=== PATIENT | male | born 1950 | race Caucasian/White ===

== ENCOUNTER 2016-11-02 16:32 | Inpatient (IN) | payer OTHER, MEDICARE ==
[~2016-11-02] VITALS: Ht 180.3 cm; Wt 110.9 kg
[~2016-11-02 16:32] MED LIST: COUM1TAB; DILT180C56; HYDR-2768; SIMV5TAB32
[2016-11-02 17:00] VITALS: BP 179/92; PULSE 80; RESP 20; O2SAT 93
[2016-11-02] MEDS ORDERED: METF1000 PO (17:05)
[2016-11-02] MEDS ORDERED: CARV25TA PO (17:05)
[2016-11-02] MEDS ORDERED: DILT300C3 PO (17:05)
[2016-11-02] MEDS ORDERED: ROSU10 PO (17:05)
[2016-11-02] MEDS ORDERED: LOSA100T PO (17:05)
[2016-11-02] MEDS ORDERED: GLIM2TAB PO (17:05)
[2016-11-02] MEDS ORDERED: COUM10TA PO (17:05)
[2016-11-02] MEDS ORDERED: NITROGLYCERIN 2% OINT 1 GM PACKET TOP ONE (17:15)
[2016-11-02] MEDS ORDERED: SODIUM CHLORIDE 0.9% FLUSH 10 ML FLUSH IVF PRN (17:15)
[2016-11-02] MEDS ORDERED: ASPIRIN 81 MG CHEW TAB PO ONE (17:15)
--- NOTE | 2016-11-02 17:16 | PD ---
HPI Chief Complaint: Chest Pain Time Seen by Provider: 16:57 Travel History International Travel<30 days: No Contact w/Intl Traveler<30days: No Traveled to known affect area: No History of Present Illness HPI The patient is a 66-year-old male who presents emergency department for chest pain or shortness of breath. The patient states he developed shortness of breath and chest pain last night. The chest pain is substernal, occasionally sharp and then dull, intermittent, and moderate in intensity. The patient also complains of shortness of breath is worse with lying supine, but denies any exertional symptoms. The patient does have a history of mechanical aortic valve repair in 2000 and is currently taking warfarin. The patient denies any nausea, vomiting, abdominal pain, or diaphoresis. The patient does have a history hypertension, hyperlipidemia, tobacco use, and diabetes. The patient's father had a CABG performed in his 70s. The patient's primary physician is Dr. Kohli and his mechanical systems design engineer is Dr. Kenney. The patient did have a cardiac catheterization prior to the aortic valve replacement which was negative per his report, no stent placement. However, he has not had a stress test or heart catheterization since the surgery. PFSH Past Medical History Hx Anticoagulant Therapy: Yes (COUMADIN) Blood Disorders: No Cardiovascular Problems: Yes (VALVE REPLACEMENT 2000, DIMITRI) High Cholesterol: Yes Diabetes: Yes (II) Patient Takes Glucophage: Yes Diminished Hearing: No Endocrine: No Genitourinary: No Hypertension: Yes Immune Disorder: No Musculoskeletal: No Neurologic: No Reproductive: No Tetanus Vaccination: > 5 Years Influenza Vaccination: Yes Past Surgical History Cardiac Surgery: Yes (AVR 2000) Social History Alcohol Use: No Tobacco Use: Yes (08/06 PPD) Allergies-Medications (Allergen,Severity, Reaction): Coded Allergies: No Known Allergies (Verified , 11/02/16) Reported Meds & Prescriptions Reported Meds & Active Scripts Active Reported Coumadin (Warfarin) 10 Mg Tab 10 Mg PO DAILY Losartan (Losartan Potassium) 100 Mg Tab 100 Mg PO DAILY Glimepiride 2 Mg Tab 2 Mg PO BIDAC Crestor (Rosuvastatin Calcium) 10 Mg Tab 10 Mg PO DAILY Carvedilol 25 Mg Tab 25 Mg PO BID Diltiazem CD 24 HR 300 Mg Caper 300 Mg PO DAILY Metformin (Metformin HCl) 1,000 Mg Tab 1,000 Mg PO BIDPC With meals Review of Systems Except as stated in HPI: all other systems reviewed are Neg General / Constitutional: No: Fever HENT: No: Lightheadedness Cardiovascular: Positive: Chest Pain or Discomfort, No: Dyspnea on exertion Respiratory: Positive: Shortness of Breath Gastrointestinal: No: Nausea, Vomiting, Abdominal Pain Musculoskeletal: No: Weakness, Edema Neurologic: No: Dizziness Physical Exam Narrative GENERAL: Awake, alert, pleasant 66-year-old male who appears his stated age and is in no acute respiratory distress. SKIN: Focused skin assessment warm/dry. Tattoos noted. HEAD: Atraumatic. Normocephalic. EYES: Pupils equal and round. No scleral icterus. No injection or drainage. ENT: No nasal bleeding or discharge. Mucous membranes pink and moist. NECK: Trachea midline. No JVD. CARDIOVASCULAR: Regular rate and rhythm. Mechanical click noted. Well-healed midline incisional scar. RESPIRATORY: No accessory muscle use. Essentially clear bilateral. GASTROINTESTINAL: Abdomen soft, non-tender, nondistended. No epigastric tenderness. No rebound tenderness. MUSCULOSKELETAL: No obvious deformities. No clubbing. No cyanosis. No edema. NEUROLOGICAL: Awake and alert. No obvious cranial nerve deficits. Motor grossly within normal limits. Normal speech. PSYCHIATRIC: Appropriate mood and affect; insight and judgment normal. Data Data Last Documented VS Vital Signs Date Time Temp Pulse Resp B/P Pulse Ox O2 Delivery O2 Flow Rate FiO2 11/02/16 17:00 80 20 179/92 93 Room Air Orders Electrocardiogram (11/02/16 ) B-Type Natriuretic Peptide (11/02/16 17:11) Ckmb (Isoenzyme) Profile (11/02/16 17:11) Complete Blood Count With Diff (11/02/16 17:11) Comprehensive Metabolic Panel (11/02/16 17:11) Magnesium (Mg) (11/02/16 17:11) Prothrombin Time / Inr (Pt) (11/02/16 17:11) Act Partial Throm Time (Ptt) (11/02/16 17:11) Troponin I (11/02/16 17:11) Chest, Single Ap (11/02/16 17:11) Ecg Monitoring (11/02/16 17:11) Bilateral Bp Monitoring (11/02/16 17:11) Iv Access Insert/Monitor (11/02/16 17:11) Oximetry (11/02/16 17:11) Oxygen Administration (11/02/16 17:11) Aspirin Chew (Aspirin Chew) (11/02/16 17:15) Nitroglycerin 2% Oint (Nitroglycerin 2% (11/02/16 17:15) Sodium Chloride 0.9% Flush (Ns Flush) (11/02/16 17:15) CKMB (11/02/16 17:15) CKMB% (11/02/16 17:15) Labs Laboratory Tests Test 11/02/16 17:15 White Blood Count 8.1 TH/MM3 Red Blood Count 4.62 MIL/MM3 Hemoglobin 12.8 GM/DL Hematocrit 38.8 % Mean Corpuscular Volume 83.9 FL Mean Corpuscular Hemoglobin 27.6 PG Mean Corpuscular Hemoglobin 32.9 % Concent Red Cell Distribution Width 15.7 % Platelet Count 209 TH/MM3 Mean Platelet Volume 8.7 FL Neutrophils (%) (Auto) 63.8 % Lymphocytes (%) (Auto) 21.6 % Monocytes (%) (Auto) 9.7 % Eosinophils (%) (Auto) 3.7 % Basophils (%) (Auto) 1.2 % Neutrophils # (Auto) 5.2 TH/MM3 Lymphocytes # (Auto) 1.8 TH/MM3 Monocytes # (Auto) 0.8 TH/MM3 Eosinophils # (Auto) 0.3 TH/MM3 Basophils # (Auto) 0.1 TH/MM3 CBC Comment DIFF FINAL Differential Comment Prothrombin Time 30.1 SEC Prothromb Time International 2.6 RATIO Ratio Activated Partial 33.6 SEC Thromboplast Time Sodium Level 140 MEQ/L Potassium Level 4.5 MEQ/L Chloride Level 105 MEQ/L Carbon Dioxide Level 28.5 MEQ/L Anion Gap 7 MEQ/L Blood Urea Nitrogen 10 MG/DL Creatinine 0.89 MG/DL Estimat Glomerular Filtration 85 ML/MIN Rate Random Glucose 111 MG/DL Calcium Level 9.7 MG/DL Magnesium Level 1.6 MG/DL Total Bilirubin 0.5 MG/DL Aspartate Amino Transf 22 U/L (AST/SGOT) Alanine Aminotransferase 29 U/L (ALT/SGPT) Alkaline Phosphatase 60 U/L Total Creatine Kinase 125 U/L Creatine Kinase MB 1.6 NG/ML Troponin I 0.02 NG/ML Total Protein 7.2 GM/DL Albumin 4.0 GM/DL MDM Medical Decision Making Medical Screen Exam Complete: Yes Emergency Medical Condition: Yes Medical Record Reviewed: Yes Interpretation(s) EKG reveals normal sinus rhythm. Left bundle branch block. Laboratory Tests Test 11/02/16 17:15 White Blood Count 8.1 TH/MM3 Red Blood Count 4.62 MIL/MM3 Hemoglobin 12.8 GM/DL Hematocrit 38.8 % Mean Corpuscular Volume 83.9 FL Mean Corpuscular Hemoglobin 27.6 PG Mean Corpuscular Hemoglobin 32.9 % Concent Red Cell Distribution Width 15.7 % Platelet Count 209 TH/MM3 Mean Platelet Volume 8.7 FL Neutrophils (%) (Auto) 63.8 % Lymphocytes (%) (Auto) 21.6 % Monocytes (%) (Auto) 9.7 % Eosinophils (%) (Auto) 3.7 % Basophils (%) (Auto) 1.2 % Neutrophils # (Auto) 5.2 TH/MM3 Lymphocytes # (Auto) 1.8 TH/MM3 Monocytes # (Auto) 0.8 TH/MM3 Eosinophils # (Auto) 0.3 TH/MM3 Basophils # (Auto) 0.1 TH/MM3 CBC Comment DIFF FINAL Differential Comment Prothrombin Time 30.1 SEC Prothromb Time International 2.6 RATIO Ratio Activated Partial 33.6 SEC Thromboplast Time Sodium Level 140 MEQ/L Potassium Level 4.5 MEQ/L Chloride Level 105 MEQ/L Carbon Dioxide Level 28.5 MEQ/L Anion Gap 7 MEQ/L Blood Urea Nitrogen 10 MG/DL Creatinine 0.89 MG/DL Estimat Glomerular Filtration 85 ML/MIN Rate Random Glucose 111 MG/DL Calcium Level 9.7 MG/DL Magnesium Level 1.6 MG/DL Total Bilirubin 0.5 MG/DL Aspartate Amino Transf 22 U/L (AST/SGOT) Alanine Aminotransferase 29 U/L (ALT/SGPT) Alkaline Phosphatase 60 U/L Total Creatine Kinase 125 U/L Creatine Kinase MB 1.6 NG/ML Troponin I 0.02 NG/ML Total Protein 7.2 GM/DL Albumin 4.0 GM/DL Last Impressions Chest X-Ray 11/02/16 8214 Signed Impressions: Service Date/Time: Wednesday, November 02, 2016 17:16 - CONCLUSION: Compensated cardiomegaly, previous aortic valve otherwise negative. Armani Fiore MD FACR Differential Diagnosis Differential diagnosis includes acute coronary syndrome, congestive heart failure, mechanical valve failure, pulmonary embolism, GERD, pancreatitis, esophageal spasm, pleural effusion, pneumonia. Narrative Course IV was established, labs are drawn and sent, and the patient was placed on cardiac telemetry monitoring and continuous pulse oximetry monitoring. The patient was administered aspirin and Nitropaste. EKG was ordered and interpreted. EKG reveals a left bundle branch block, no old EKGs on record. The patient's chest x-ray reveals compensated cardiomegaly and postoperative changes, no evidence of pleural affusion or significant pulmonary edema. The patient's initial troponin is negative. The patient does have chest pain with mild shortness of breath, may be secondary to acute coronary syndrome versus cardiomyopathy. Therefore, patient will be 23 hour observation to the chest pain center for serial cardiac enzymes and further evaluation by cardiology. Physician Communication Physician Communication The patient will be 23 hour observation to [facility] pain center for serial cardiac enzymes and further evaluation by cardiology. Diagnosis Primary Impression: Chest pain Qualified Code: R07.9 - Chest pain, unspecified type Additional Impression: Dyspnea Qualified Code: R06.02 - Shortness of breath Admitting Information Admitting Physician Requests: Observation Condition: Stable Norman Spencer MD Nov 02, 2016 17:16
[2016-11-02 17:40] LABS: AUTOMATED NEUTROPHIL # 5.2 TH/MM3 (1.8-7.7); BASOPHIL # 0.1 TH/MM3 (0-0.2); BASOPHIL % 1.2 % (0.0-2.0); EOSINOPHIL # 0.3 TH/MM3 (0-0.4); EOSINOPHIL % 3.7 % (0.0-4.0); HEMATOCRIT 38.8 % (39.0-51.0); HEMO FLAGS DIFF FINAL; LYMPH % 21.6 % (9.0-44.0); LYMPHOCYTE # 1.8 TH/MM3 (1.0-4.8); MEAN CELL VOLUME 83.9 FL (80.0-100.0); MEAN CORPUSCULAR HEMOGLOBIN 27.6 PG (27.0-34.0); MEAN CORPUSCULAR HGB CONC 32.9 % (32.0-36.0); MONO % 9.7 % (0.0-8.0); NEUT % 63.8 % (16.0-70.0); PLATELET COUNT 209 TH/MM3 (150-450); RED BLOOD COUNT 4.62 MIL/MM3 (4.50-5.90); RED CELL DISTRIBUTION WIDTH 15.7 % (11.6-17.2); WHITE BLOOD COUNT 8.1 TH/MM3 (4.0-11.0)
--- NOTE | 2016-11-02 17:47 | RADRPT ---
EXAM DATE/TIME: 11/02/2016 17:16 [facility] COMPARISON: No previous studies available for comparison. INDICATIONS : Chest pain and short of breath. MEDICAL HISTORY : None. SURGICAL HISTORY : Heart valve. ENCOUNTER: Initial ACUITY: 1 day PAIN SCORE: 7/10 LOCATION: Bilateral chest FINDINGS: The lungs are clear. The heart is minimally enlarged. Sternal l wires and aortic valve are noted. T he pulmonary vascularity is normal. There is no evidence for infiltrate or failure. The portion of the bony skeleton visualized is unremarkable. CONCLUSION: Compensated cardiomegaly, previous aortic valve otherwise negative. Armani Fiore MD FACR Board Certified Radiologist. This report was verified electronically.
[2016-11-02 17:48] LABS: APTT (PATIENT) 33.6 SEC (24.3-30.1); INTERNATIONAL NORMALIZED RATIO 2.6 RATIO; PROTHROMBIN TIME - PATIENT 30.1 SEC (9.8-11.6)
[2016-11-02 18:03] LABS: ALKALINE PHOSPHATASE 60 U/L (45-117); ALT (GPT) 29 U/L (12-78); ANION GAP 7 MEQ/L (5-15); AST (GOT) 22 U/L (15-37); BICARBONATE 28.5 MEQ/L (21.0-32.0); BLOOD UREA NITROGEN 10 MG/DL (7-18); CHLORIDE 105 MEQ/L (98-107); CREATINE KINASE 125 U/L (39-308); GLOMERULAR FILTRATION RATE 85 ML/MIN (>89); MAGNESIUM 1.6 MG/DL (1.5-2.5); SODIUM (NA) 140 MEQ/L (136-145); TOTAL BILIRUBIN ADULT 0.5 MG/DL (0.2-1.0)
[2016-11-02 18:20] LABS: POTASSIUM 4.5 MEQ/L (3.5-5.1)
[2016-11-02 18:32] LABS: CKMB 1.6 NG/ML (0.5-3.6)
[2016-11-02] MEDS ORDERED: WARFARIN SOD 10 MG TAB PO ONE (19:00)
[2016-11-02] MEDS ORDERED: ACETAMINOPHEN 500 MG CPLT PO PRN (19:00)
[2016-11-02] MEDS ORDERED: ACETAMINOPHEN/HYDROcodone 325 MG/7.5 MG TAB PO PRN (19:00)
[2016-11-02] MEDS ORDERED: SODIUM CHLORIDE 0.9% FLUSH 10 ML FLUSH IV FLUSH PRN (19:00)
[2016-11-02] MEDS ORDERED: ONDANSETRON HCL 4 MG/2 ML VIAL IV PRN (19:00)
[2016-11-02] MEDS ORDERED: MORPHINE SULFATE 4 MG/ML INJ IV PRN (19:00)
[2016-11-02] MEDS ORDERED: NITROGLYCERIN 0.4 MG SL 25 TABS/BTL SL PRN (19:00)
[2016-11-02 19:01] VITALS: BP 172/94
[2016-11-02 20:49] VITALS: BP 152/72; PULSE 86; RESP 16; O2SAT 96
[2016-11-02] MEDS: SODIUM CHLORIDE 0.9% FLUSH 10 ML FLUSH IV FLUSH SCH (20:49)
[2016-11-02 23:08] VITALS: BP 168/90; PULSE 79; RESP 20; TEMP 98.5; O2SAT 95
[2016-11-02 23:44] LABS: CREATINE KINASE 111 U/L (39-308)
[2016-11-02 23:58] LABS: CKMB 1.6 NG/ML (0.5-3.6)
[2016-11-03] VITALS (10 sets, daily range): BP systolic 115–160; BP diastolic 58–94; PULSE 64–91; RESP 20; TEMP 97.6–98.9; O2SAT 93–99
[2016-11-03] MEDS: ASPIRIN 325 MG TAB PO SCH (07:54)
[2016-11-03] MEDS: SODIUM CHLORIDE 0.9% FLUSH 10 ML FLUSH IV FLUSH SCH ×2 (09:00→21:00)
[2016-11-03] MEDS ORDERED: DEXTROSE 50% IN WATER 50 ML VIAL(D50) IV PRN (09:30)
[2016-11-03] MEDS ORDERED: DILTIAZEM-CD 300 MG CAP ER PO SCH (09:30)
[2016-11-03] MEDS ORDERED: GLUCAGON 1 MG/ML VIAL IM/SQ PRN (09:30)
[2016-11-03] MEDS: LOSARTAN 50 MG TAB PO SCH (09:42)
[2016-11-03] MEDS: ATORVASTATIN 20 MG TAB PO SCH (09:42)
[2016-11-03] MEDS: CARVEDILOL 12.5 MG TAB PO SCH ×2 (09:42→21:00)
--- NOTE | 2016-11-03 09:52 | HHI.HP ---
[facility] Primary Care Physician Maegan Morales MD Chief Complaint Chest pain and shortness of breath History of Present Illness This is a 66-year-old male with history of aortic valve replacement in 2000 that presents complaining of chest pain and shortness of breath. States he really wasn't concerned with the chest discomfort. He states that the little thumb print jabbing at different spots of his chest. He is concerned about the shortness of breath. He states it never been short of breath. He is beginning to wonder has anything to do with taking Chantix. He began taking Chantix 5 days ago and the shortness of breath began 3 days ago. States not exertional related as he does nothing exertional. But he looked up the medication and said that it can cause shortness of breath and difficulty sleeping which she's had both. He has had no cigarettes for last 4 days. He states at times the shortness of breath is worse lot when lying flat. Patient states he has been compliant with medications including his warfarin. Denies recent illness. Denies fevers or chills. He has not been coughing. Review of Systems General: Patient denies fevers, chills recent, and recent travel HEENT: Patient denies headache, sore throat, difficulty swallowing. Cardiovascular: Has the chest discomfort as mentioned above. Denies sensation of heart beating rapidly or irregularly. No syncope. Denies diaphoresis. Respiratory: Patient has been short of breath. Denies chest discomfort. Denies coughing wheezing or hemoptysis. GI: Patient denies nausea, vomiting, diarrhea, abdominal pain, bloody stools. Musculoskeletal: Patient denies joint pain or edema. Denies calf pain or edema. Neurovascular: Patient denies numbness, tingling, weakness in extremities. Denies headache. Endocrine: Denies polyuria and polydipsia. Hematologic: Denies easy bruising. Skin: Denies rash or itching. Past Family Social History Allergies: Coded Allergies: No Known Allergies (Verified , 11/02/16) Past Medical History History of aortic valve replacement and on Coumadin therapy. Hypertension, hyperlipidemia, and diabetes. 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 He states he has a checked annually and it has not changed since 2000. Past Surgical History Aortic valve replacement 2000. Cardiac catheterization 2000 without intervention. Reported Medications Reported Meds & Active Scripts Active Reported Coumadin (Warfarin) 10 Mg Tab 10 Mg PO DAILY Losartan (Losartan Potassium) 100 Mg Tab 100 Mg PO DAILY Glimepiride 2 Mg Tab 2 Mg PO BIDAC Crestor (Rosuvastatin Calcium) 10 Mg Tab 10 Mg PO DAILY Carvedilol 25 Mg Tab 25 Mg PO BID Diltiazem CD 24 HR 300 Mg Caper 300 Mg PO DAILY Metformin (Metformin HCl) 1,000 Mg Tab 1,000 Mg PO BIDPC With meals Active Ordered Medications Current Medications Medications (Trade) Dose Ordered Sig/Herlinda Route Start Time Stop Time Status Last Admin (NS Flush) 2 ml UNSCH PRN IV FLUSH 11/02/16 19:00 (NS Flush) 2 ml BID IV FLUSH 11/02/16 21:00 11/02/16 20:49 (Tylenol) 500 mg Q4H PRN PO 11/02/16 19:00 ([place] 7.5-325 Mg) 1 tab Q4H PRN PO 11/02/16 19:00 (Morphine Inj) 2 mg Q4H PRN IV 11/02/16 19:00 (Zofran Inj) 4 mg Q6H PRN IV 11/02/16 19:00 (Nitrostat Sl) 0.4 mg Q5M PRN SL 11/02/16 19:00 (Aspirin) 325 mg DAILY PO 11/03/16 09:00 11/03/16 07:54 (Coreg) 25 mg BID PO 11/03/16 09:30 (Cardizem Cd) 300 mg DAILY PO 11/03/16 09:30 (Cozaar) 100 mg DAILY PO 11/03/16 09:30 (Lipitor) 20 mg DAILY PO 11/03/16 09:30 (D50w (Vial) Inj) 25 ml UNSCH PRN IV 11/03/16 09:30 (Glucagon Inj) 1 mg UNSCH PRN IM/SQ 11/03/16 09:30 Family History Follow had a bypass in his 70s. Social History Patient quit smoking 4 days ago but prior that he was smoking anywhere from 1-2 and a pack cigarettes daily for 25 years. No alcohol for 40 years. Denies illicit drugs. He is . Physical Exam Vital Signs Vital Signs Date Time Temp Pulse Resp B/P Pulse Ox O2 Delivery O2 Flow Rate FiO2 11/03/16 08:14 93 21 11/03/16 07:27 98.9 90 20 156/89 93 11/03/16 07:25 88 11/03/16 03:59 97.6 87 20 160/94 99 11/03/16 03:50 91 11/03/16 00:14 80 11/02/16 23:08 98.5 79 20 168/90 95 11/02/16 20:49 86 16 152/72 96 Nasal Cannula 2 11/02/16 19:01 172/94 11/02/16 17:00 80 20 179/92 93 Room Air 11/02/16 17:00 81 20 96 Physical Exam GENERAL: This is a well-nourished, well-developed patient, in no apparent distress. Patient speaks in clear complete sentences. Patient is pleasant. HEENT: Head is atraumatic and normocephalic. Neck is supple without lymphadenopathy and trachea is midline. No JVD or carotid bruits. CARDIOVASCULAR: Grade 3 systolic murmur right sternal border. Regular rate and rhythm without gallops, or rubs. RESPIRATORY: Clear to auscultation. Breath sounds equal bilaterally. No wheezes , rales, or rhonchi. Chest wall is nontender. No use of accessory muscles. GASTROINTESTINAL: Abdomen is nontender, nondistended. Abdomen soft. No obvious pulsatile mass or bruit. No CVA tenderness. Strong femoral pulses bilaterally. Normal bowel sounds in all quadrants. MUSCULOSKELETAL: Patient is moving upper and lower extremities freely. 1+ edema bilateral lower extremities. No calf tenderness and no Homans sign. Strong pulses in upper and lower extremities. NEUROLOGICAL: Patient is alert and oriented. Cranial nerves 2-12 are grossly intact. No focal deficits and speech is clear. SKIN: No rash and turgor is normal. Laboratory Laboratory Tests Test 11/02/16 11/02/16 11/02/16 17:15 20:30 23:09 White Blood Count 8.1 Red Blood Count 4.62 Hemoglobin 12.8 Hematocrit 38.8 Mean Corpuscular Volume 83.9 Mean Corpuscular Hemoglobin 27.6 Mean Corpuscular Hemoglobin 32.9 Concent Red Cell Distribution Width 15.7 Platelet Count 209 Mean Platelet Volume 8.7 Neutrophils (%) (Auto) 63.8 Lymphocytes (%) (Auto) 21.6 Monocytes (%) (Auto) 9.7 Eosinophils (%) (Auto) 3.7 Basophils (%) (Auto) 1.2 Neutrophils # (Auto) 5.2 Lymphocytes # (Auto) 1.8 Monocytes # (Auto) 0.8 Eosinophils # (Auto) 0.3 Basophils # (Auto) 0.1 CBC Comment DIFF FINAL Differential Comment Prothrombin Time 30.1 Prothromb Time International 2.6 Ratio Activated Partial 33.6 Thromboplast Time Sodium Level 140 Potassium Level 4.5 Chloride Level 105 Carbon Dioxide Level 28.5 Anion Gap 7 Blood Urea Nitrogen 10 Creatinine 0.89 Estimat Glomerular Filtration 85 Rate Random Glucose 111 Calcium Level 9.7 Magnesium Level 1.6 Total Bilirubin 0.5 Aspartate Amino Transf 22 (AST/SGOT) Alanine Aminotransferase 29 (ALT/SGPT) Alkaline Phosphatase 60 Total Creatine Kinase 125 84 111 Creatine Kinase MB 1.6 1.6 Troponin I 0.02 0.03 0.02 B-Type Natriuretic Peptide 310 Total Protein 7.2 Albumin 4.0 Result Diagram: 11/02/16 17111/02/161714 Assessment and Plan Assessment and Plan * Chest pain: Patient had serial cardiac enzymes and EKGs for ruling out purposes. EKG has left bundle branch block. He will be seen by Dr. Moscoso in the chest pain center and will undergo a Lexiscan. He will likely be discharged home with instructions to follow-up with his primary care physician and alum operator if the stress test were to be nonischemic. * Hypertension: Resume current medication. * History of aortic valve replacement: Continue warfarin and continue follow with physician to regulate the warfarin dose. * Hyperlipidemia: Continue current medication. * Diabetes: We'll hold his oral medications and cover with sliding coverage while he is nothing by mouth. Will resume his medications afterwards. He should follow diabetic diet. * Tobacco abuse: Patient has been counseled on importance of continued smoking cessation. Will discuss Chantix with Dr. Moscoso. Mina Minaya Nov 03, 2016 09:52
[2016-11-03] MEDS ORDERED: REGADENOSON INJ 0.4 MG/5 ML SYR ONE (10:22)
[2016-11-03] MEDS: INSULIN ASPART SUPPLEMENTAL SCALE SQ SCH ×3 (10:41→21:00)
[2016-11-03] MEDS ORDERED: COUM10TA PO (11:58)
[2016-11-03] MEDS ORDERED: COUM2.5T PO (11:58)
--- NOTE | 2016-11-03 12:12 | RADRPT ---
EXAM DATE/TIME: 11/03/2016 10:15 [facility] COMPARISON: No previous studies available for comparison. INDICATIONS : Substernal chest pain with dyspnea. Angina. DOSE: 35 mCi Tc99m Myoview at stress. 11 mCi Tc99m Myoview at rest. 0.4 mg Lexiscan STRESS SYMPTOMS: Dyspnea. EJECTION FRACTION: 37% MEDICAL HISTORY : Hypercholesterolemia. Hypertension. Diabetes mellitus type 2. Smoker. SURGICAL HISTORY : Aortic valve repair. ENCOUNTER: Initial ACUITY: 2 days PAIN SCALE: 7/10 LOCATION: Substernal chest TECHNIQUE: The patient underwent pharmacologic stress with infusion of prescribed dose. Continuous ECG tracing was monitored during stress. Gated SPECT imaging was performed after stress and conventional SPECT i maging was performed at rest. The examination was performed on a SPECT/CT scanner, both attenuation and non-corrected datasets were reviewed. FINDINGS: The best perfused myocardium in the septum. There is redistribution in the anterior lateral wall beg inning in the ventricle extending to the apex. There is minimal redistribution in the inferior septa l region as well. Ejection fraction 37% with septal and inferior wall hypokinesis. The lateral wall that shows redistr ibution and does have reasonable wall motion. CONCLUSION: Stress-induced ischemia as described above RISK CATEGORY: Intermediate (1-3% Annual Mortality Rate) Armani Fiore MD FACR on November 03, 2016 at 12:09 Board Certified Radiologist. This report was verified electronically.
[2016-11-03 13:52] LABS: INTERNATIONAL NORMALIZED RATIO 2.3 RATIO; PROTHROMBIN TIME - PATIENT 25.9 SEC (9.8-11.6)
[2016-11-03] MEDS: FUROSEMIDE 40 MG TAB PO SCH (15:41)
--- NOTE | 2016-11-03 15:58 | MB ---
cc: ANGELICA GÓMEZ HANSCY M.D. DATE OF CONSULTATION: 11/03/2016 REASON FOR CONSULTATION: Chest pain, angina. Positive nuclear stress study. HISTORY OF PRESENT ILLNESS: Mr. Arenas is a 66-year-old gentleman with history of aortic valve replacement, that was in 2000, diabetes mellitus, high blood pressure, hyperlipidemia, chronic smoker just stopped smoking around 5 days ago. He used Chantix. He began with chest discomfort and shortness of breath. He decided to come to the emergency room. He was admitted. Nuclear stress study was performed. That indicated anterior ischemia, ejection fraction of around 37%. I was consulted for further evaluation and management. The chart was reviewed. The patient was evaluated. ALLERGIES: NONE. SOCIAL HISTORY The gentleman smokes a pack of cigarettes a day for the past 40 to 45 years. He tried to stop smoking five days ago. FAMILY HISTORY Noncontributory to his current medical condition. MEDICATIONS 1. Coumadin. 2. Losartan 3. Glimeperide. 4. Crestor. 5. Coreg. 6. Cardizem. 7. Metformin. REVIEW OF SYSTEMS He refer currently some shortness of breath but no chest pain, no chest discomfort, no fever. PHYSICAL EXAMINATION: Alert, fully oriented. VITAL SIGNS: Blood pressure is 156/89, pulse 88, respiratory rate 20. Lungs: Ventilated. Cardiovascular: S1-S2 regular. No gallop. No murmur heard. Abdomen: Soft, obese. No masses or bruits. Extremities: No edema. Electrocardiogram: sinus rhythm, first-degree AV block, left bundle-branch block, diffuse ST changes. LABORATORY DATA Hemoglobin is 12.8, white blood cell 8.1, potassium 4.5, creatinine 0.89, troponin 0.02. BNP 310. ASSESSMENT AND RECOMMENDATIONS Mr. Arenas has multiple risk factors. He has diabetes mellitus. He has severe morbid obesity, high blood pressure, hyperlipidemia. He has no chest pain, no chest discomfort. Ejection fraction is low. He had a positive nuclear stress study. He is still smoking a pack of cigarettes a day, 16 years ago he had a cardiac catheterization but now he has strong risk factor for coronary artery disease. The gentleman is going to need a left heart catheterization. The case extensively discussed with him and his . Medications will be modified. Dr. Gómez will be consulted for the procedure. MD BETHANY Patel /2:50 PM /3:49 PM
[2016-11-03] MEDS: amLODIPine BESYLATE 5 MG TAB PO SCH (21:14)
[2016-11-03] MEDS: TEMAZEPAM 15 MG CAP PO PRN (22:39)
[2016-11-04] VITALS (13 sets, daily range): BP systolic 123–142; BP diastolic 60–84; PULSE 62–98; RESP 20; TEMP 97.5–98.9; O2SAT 91–97
[2016-11-04] MEDS: INSULIN ASPART SUPPLEMENTAL SCALE SQ SCH ×4 (06:43→20:56)
[2016-11-04 07:23] LABS: PROTHROMBIN TIME - PATIENT 22.7 SEC (9.8-11.6)
[2016-11-04 07:38] LABS: BICARBONATE 28.4 MEQ/L (21.0-32.0); POTASSIUM 3.7 MEQ/L (3.5-5.1)
[2016-11-04] MEDS: FUROSEMIDE 40 MG TAB PO SCH (07:54)
[2016-11-04] MEDS: CARVEDILOL 12.5 MG TAB PO SCH ×2 (07:55→20:55)
[2016-11-04] MEDS: LOSARTAN 50 MG TAB PO SCH (07:55)
[2016-11-04] MEDS: ASPIRIN 325 MG TAB PO SCH (07:55)
[2016-11-04] MEDS: ATORVASTATIN 20 MG TAB PO SCH (07:55)
[2016-11-04] MEDS: amLODIPine BESYLATE 5 MG TAB PO SCH ×2 (07:55→20:56)
[2016-11-04] MEDS: SODIUM CHLORIDE 0.9% FLUSH 10 ML FLUSH IV FLUSH SCH ×2 (07:56→20:55)
--- NOTE | 2016-11-04 08:12 | HHI.PR ---
Subjective Remarks This is a Pleasant 66 y/o Male with Aortic Valve replacement in 2000, who came to ER with Atypical Chest pain and Shortness of breath he has been on Coumadin therapy, has Hypertension, Hyperlipidemia, and Diabetes Mellitus, PCI 2000, seen by Doctor Rodney Moscoso mental health program specialist and asked for Stress test, read as positive so he was transferred from Clinical Decision Unit, Hospitalized for Interventional mental health program specialist Evaluation, Hospitalist called as Attending for today, he was seen by Doctor Jose Alfredo Haro recommended for Cardiac Cath. 11/04: Seen in his bedroom and discussed with nurse given replacement for potassium in 3.7 and also given magnesium replacement, No Nausea, vomit or diarrhea, No chest pain at this time. Objective Vital Signs Date Time Temp Pulse Resp B/P Pulse Ox O2 Delivery O2 Flow Rate FiO2 11/04/16 07:12 97.9 68 20 142/69 93 11/04/16 03:48 98.0 73 20 137/79 96 11/04/16 00:01 97.6 62 20 126/60 95 11/03/16 21:00 64 11/03/16 20:55 97 Nasal Cannula 3.00 11/03/16 19:22 98.0 67 20 115/58 98 11/03/16 15:32 97.8 68 20 128/75 95 11/03/16 08:14 93 21 I/O 11/03/16 11/03/16 11/03/16 11/04/16 11/04/16 11/04/16 06:59 14:59 22:59 06:59 14:59 22:59 Intake Total 240 ml Balance 240 ml Intake Oral 240 ml # Voids 2 1 3 Result Diagram: 11/02/16 1715 11/04/16 0455 Imaging Last Impressions Myocardial Perfusion Scan Nuc Med 11/03/16 0000 Signed Impressions: Service Date/Time: Thursday, November 03, 2016 10:15 - CONCLUSION: Stress- induced ischemia as described above RISK CATEGORY: Intermediate (1-3%% Annual Mortality Rate) Armani Fiore MD FACR Chest X-Ray 11/02/16 1711 Signed Impressions: Service Date/Time: Wednesday, November 02, 2016 17:16 - CONCLUSION: Compensated cardiomegaly, previous aortic valve otherwise negative. Armani Fiore MD FACR Procedures Stress Test Other Results Laboratory Tests Test 11/02/16 11/02/16 11/04/16 17:15 23:09 04:55 White Blood Count 8.1 TH/MM3 Red Blood Count 4.62 MIL/MM3 Hemoglobin 12.8 GM/DL Hematocrit 38.8 % Mean Corpuscular Volume 83.9 FL Mean Corpuscular Hemoglobin 27.6 PG Mean Corpuscular Hemoglobin 32.9 % Concent Red Cell Distribution Width 15.7 % Platelet Count 209 TH/MM3 Mean Platelet Volume 8.7 FL Neutrophils (%) (Auto) 63.8 % Lymphocytes (%) (Auto) 21.6 % Monocytes (%) (Auto) 9.7 % Eosinophils (%) (Auto) 3.7 % Basophils (%) (Auto) 1.2 % Neutrophils # (Auto) 5.2 TH/MM3 Lymphocytes # (Auto) 1.8 TH/MM3 Monocytes # (Auto) 0.8 TH/MM3 Eosinophils # (Auto) 0.3 TH/MM3 Basophils # (Auto) 0.1 TH/MM3 CBC Comment DIFF FINAL Differential Comment Activated Partial 33.6 SEC Thromboplast Time Magnesium Level 1.6 MG/DL Total Bilirubin 0.5 MG/DL Aspartate Amino Transf 22 U/L (AST/SGOT) Alanine Aminotransferase 29 U/L (ALT/SGPT) Alkaline Phosphatase 60 U/L B-Type Natriuretic Peptide 310 PG/ML Total Protein 7.2 GM/DL Albumin 4.0 GM/DL Total Creatine Kinase 111 U/L Creatine Kinase MB 1.6 NG/ML Troponin I 0.02 NG/ML Prothrombin Time 22.7 SEC Prothromb Time International 2.0 RATIO Ratio Sodium Level 140 MEQ/L Potassium Level 3.7 MEQ/L Chloride Level 103 MEQ/L Carbon Dioxide Level 28.4 MEQ/L Anion Gap 9 MEQ/L Blood Urea Nitrogen 11 MG/DL Creatinine 0.69 MG/DL Estimat Glomerular Filtration 114 ML/MIN Rate Random Glucose 135 MG/DL Calcium Level 9.0 MG/DL Objective Remarks GENERAL: Obese patient in no acute distress. HEENT: Head is atraumatic and normocephalic. CARDIOVASCULAR: Grade 3 systolic murmur right sternal border. Regular rate and rhythm without gallops, or rubs. RESPIRATORY: Clear to auscultation. Breath sounds equal bilaterally. No wheezes , rales, or rhonchi. Chest wall is nontender. No use of accessory muscles. GASTROINTESTINAL: Abdomen is nontender, nondistended. Abdomen soft. MUSCULOSKELETAL: Patient is moving upper and lower extremities freely. 1+ edema bilateral lower extremities. NEUROLOGICAL: Patient is alert and oriented. Cranial nerves 2-12 are grossly intact. No focal deficits and speech is clear. SKIN: No rash and turgor is normal. Medications and IVs Current Medications Medications (Trade) Dose Ordered Sig/Herlinda Route Start Time Stop Time Status Last Admin (NS Flush) 2 ml UNSCH PRN IV FLUSH 11/02/16 19:00 (NS Flush) 2 ml BID IV FLUSH 11/02/16 21:00 11/04/16 07:56 (Tylenol) 500 mg Q4H PRN PO 11/02/16 19:00 ([place] 7.5-325 Mg) 1 tab Q4H PRN PO 11/02/16 19:00 (Morphine Inj) 2 mg Q4H PRN IV 11/02/16 19:00 (Zofran Inj) 4 mg Q6H PRN IV 11/02/16 19:00 (Nitrostat Sl) 0.4 mg Q5M PRN SL 11/02/16 19:00 (Aspirin) 325 mg DAILY PO 11/03/16 09:00 11/04/16 07:55 (Coreg) 25 mg BID PO 11/03/16 09:30 11/04/16 07:55 (Cozaar) 100 mg DAILY PO 11/03/16 09:30 11/04/16 07:55 (Lipitor) 20 mg DAILY PO 11/03/16 09:30 11/04/16 07:55 (D50w (Vial) Inj) 25 ml UNSCH PRN IV 11/03/16 09:30 (Glucagon Inj) 1 mg UNSCH PRN IM/SQ 11/03/16 09:30 (Norvasc) 5 mg BID PO 11/03/16 21:00 11/04/16 07:55 (Lasix) 40 mg DAILY PO 11/03/16 14:45 11/04/16 07:54 (Restoril) 30 mg HS PRN PO 11/03/16 15:00 11/03/16 22:39 A/P Assessment and Plan 1. Atypical chest pain with Positive Stress test admitted for Interventional mental health program specialist evaluation, on Cardiac Monitoring, Cardiac enzymes, EKG has Left Bundle branch block, seen by Doctor Danis in Chest pain center. seen by mental health program specialist doctor Jose Alfredo and asked for Cardiac Catheterization. 2. Hypertension Controlled. 3. History of Aortic Valve Replacement on Warfarin was continued INR 2 following specialist recommendations at this time off Warfarin awaiting for procedure. 4. Hyperlipidemia to continue Statin 5. DM II on hold Oral medicine and continue sliding scale and follow Hemoglobin A1C 6. Tobacco dependence Strongly recommended to stop smoking. 7. Obesity strongly recommended diet and exercise. 8. Electrolyte derangement recommended to get magnesium over 2 for Cardiac pathology given 2 grams of magnesium Sulfate and replaced Potassium I had the pleasure to talk about the case with JOSE M Minaya Appreciated. DVT prophylaxis has INR 2. Discharge Planning Once cleared by Cardiology Tyson Quintero MD Nov 04, 2016 08:12
[2016-11-04] MEDS: MAGNESIUM SULFATE 1 GM PREMIX 100 ML IV SCH ×2 (09:21→09:27)
--- NOTE | 2016-11-04 13:23 | EKG ---
Date Performed: 11/02/2016 Time Performed: 16:48:34 PTAGE: 66 years EKG: Sinus rhythm WITH FIRST DEGREE AV BLOCK LEFT BUNDLE BRANCH BLOCK ABNORMAL ECG PREVIOUS TRACING : 10/15/2000 04.04 DOCTOR: Rodney Moscoso Interpretating Date/Time 11/04/2016 13:22:42
--- NOTE | 2016-11-04 13:38 | EKG ---
Date Performed: 11/02/2016 Time Performed: 20:31:25 PTAGE: 66 years EKG: Sinus rhythm WITH FIRST DEGREE AV BLOCK WITH FREQUENT VENTRICULAR PREMATURE COMPLEXES LEFT BUNDLE BRANCH BLOCK AB NORMAL ECG PREVIOUS TRACING : 11/02/2016 20.30 DOCTOR: Rodney Moscoso Interpretating Date/Time 11/04/2016 13:37:28
--- NOTE | 2016-11-04 13:42 | EKG ---
Date Performed: 11/02/2016 Time Performed: 23:12:55 PTAGE: 66 years EKG: Sinus rhythm WITH FIRST DEGREE AV BLOCK WITH OCCASIONAL VENTRICULAR PREMATURE COMPLEXES LEFT BUNDLE BRANCH BLOCK ABNORMAL ECG PREVIOUS TRACING : 11/02/2016 20.31 DOCTOR: Rodney Moscoso Interpretating Date/Time 11/04/2016 13:41:31
[2016-11-04] MEDS ORDERED: POTASSIUM CHLORIDE 20 MEQ CONTROLLED RELEASE TAB PO ONE (13:45)
--- NOTE | 2016-11-04 13:53 | TR ---
Date Performed: 11/03/2016 Time Performed: 10:53:09 DOCTOR: Rodney Moscoso DRUG LIST: CLINICAL HISTORY: REASON FOR TEST: CHEST PAIN REASON FOR ENDING: OBSERVATION: CONCLUSION: Lexiscan stress test was performed under standard four minute protocol. Radionuclide was injected one minute prior to ending the test. Developed dyspnea. Rare PVCs and rare PACs were no lorenzo. Marked ST-depression in leads II, III, AVF and V6 due to Left bundle branch block. Recovery was quick and uneventful with resolution of dyspnea, systolic blood pressure became slightly elevated. Nu clear imaging and interpretation are pending. COMMENTS:
[2016-11-04 14:06] LABS: HEMATOCRIT 37.9 % (39.0-51.0); MEAN CELL VOLUME 84.2 FL (80.0-100.0); MEAN CORPUSCULAR HEMOGLOBIN 28.1 PG (27.0-34.0); MEAN CORPUSCULAR HGB CONC 33.4 % (32.0-36.0); PLATELET COUNT 219 TH/MM3 (150-450); REVIEW FLAG FINAL; WHITE BLOOD COUNT 7.6 TH/MM3 (4.0-11.0)
[2016-11-04 14:15] LABS: APTT (PATIENT) 31.5 SEC (24.3-30.1)
[2016-11-04] MEDS: HEPARIN-D5W INJ 250 ML IV SCH (15:42)
--- NOTE | 2016-11-04 16:55 | HHI.PR ---
Subjective Remarks No chest pain today Objective Vital Signs Date Time Temp Pulse Resp B/P Pulse Ox O2 Delivery O2 Flow Rate FiO2 11/04/16 15:58 97.6 66 20 141/75 97 11/04/16 10:53 97.7 70 20 126/65 94 11/04/16 08:07 95 Nasal Cannula 2.00 11/04/16 07:12 97.9 68 20 142/69 93 11/04/16 03:48 98.0 73 20 137/79 96 11/04/16 00:01 97.6 62 20 126/60 95 11/03/16 21:00 64 11/03/16 20:55 97 Nasal Cannula 3.00 11/03/16 19:22 98.0 67 20 115/58 98 I/O 11/03/16 11/03/16 11/03/16 11/04/16 11/04/16 11/04/16 07:00 15:00 23:00 07:00 15:00 23:00 Intake Total 240 ml Balance 240 ml Intake Oral 240 ml # Voids 2 1 3 Result Diagram: 11/04/16 1345 11/04/16 0455 Imaging Alert, fully oriented lungs: ventilated Heart: S1, S2 regular, [facility] sound Abdomen: obese, no mass Ext: no edema Last Impressions Myocardial Perfusion Scan Nuc Med 11/03/16 0000 Signed Impressions: Service Date/Time: Thursday, November 03, 2016 10:15 - CONCLUSION: Stress- induced ischemia as described above RISK CATEGORY: Intermediate (1-3%% Annual Mortality Rate) Armani Fiore MD FACR Chest X-Ray 11/02/16 1711 Signed Impressions: Service Date/Time: Wednesday, November 02, 2016 17:16 - CONCLUSION: Compensated cardiomegaly, previous aortic valve otherwise negative. Armani Fiore MD FACR Current Medications Medications (Trade) Dose Ordered Sig/Herlinda Route Start Time Stop Time Status Last Admin (NS Flush) 2 ml UNSCH PRN IV FLUSH 11/02/16 19:00 (NS Flush) 2 ml BID IV FLUSH 11/02/16 21:00 11/04/16 07:56 (Tylenol) 500 mg Q4H PRN PO 11/02/16 19:00 ([place] 7.5-325 Mg) 1 tab Q4H PRN PO 11/02/16 19:00 (Morphine Inj) 2 mg Q4H PRN IV 11/02/16 19:00 (Zofran Inj) 4 mg Q6H PRN IV 11/02/16 19:00 (Nitrostat Sl) 0.4 mg Q5M PRN SL 11/02/16 19:00 (Coreg) 25 mg BID PO 11/03/16 09:30 11/04/16 07:55 (Cozaar) 100 mg DAILY PO 11/03/16 09:30 11/04/16 07:55 (Lipitor) 20 mg DAILY PO 11/03/16 09:30 11/04/16 07:55 (D50w (Vial) Inj) 25 ml UNSCH PRN IV 11/03/16 09:30 (Glucagon Inj) 1 mg UNSCH PRN IM/SQ 11/03/16 09:30 (Norvasc) 5 mg BID PO 11/03/16 21:00 11/04/16 07:55 (Lasix) 40 mg DAILY PO 11/03/16 14:45 11/04/16 07:54 (Restoril) 30 mg HS PRN PO 11/03/16 15:00 11/03/16 22:39 (Aspirin Chew) 81 mg DAILY CHEW 11/05/16 09:00 (Heparin Inj) 5,000 units UNSCH PRN IV 11/04/16 18:15 Heparin Sodium (Porcine) 2500 units 2,500 units UNSCH PRN IV 11/04/16 18:15 (Heparin-D5W Inj) 250 ml @ 0 mls/hr TITRATE IV 11/04/16 12:15 11/04/16 15:42 Procedures Stress Test Assessment and Plan Problem List: (1) Chest pain Status: Acute Plan: Positive nuclear stress study. On coumadin. Asymptomatic now Dr Ocasio consulted for [facility] case discussed with patient (2) Dyspnea Status: Acute Plan: Stable. AVR Problem Qualifiers (1) Chest pain: Qualified Code: R07.9 - Chest pain, unspecified type (2) Dyspnea: Qualified Code: R06.02 - Shortness of breath Tahir Veliz MD Nov 04, 2016 16:55
[2016-11-04] MEDS ORDERED: HEPARIN SODIUM - IV 10,000 UNITS/10 ML VIAL IV PRN ×2 (18:15)
[2016-11-04] MEDS: TEMAZEPAM 15 MG CAP PO PRN (20:55)
--- NOTE | 2016-11-04 21:16 | MB ---
cc: JAKE GÓMEZ,MAEGAN HOLLOWAY,MAURA Aviles M.D. DATE OF CONSULTATION 11/04/[address] Maegan Saldana. PRIMARY SOLAR SYSTEMS DESIGNER Dr. Maura Holloway REASON FOR CONSULTATION Reason for interventional cardiology consultation, abnormal stress test consideration of cardiac catheterization. HISTORY OF PRESENT ILLNESS Reza Arenas is a pleasant 66-year-old male who presents to [facility] Emergency Room due to chest pain. He recently quit smoking and started on Chantix about 5 days ago. He was at the point where he increased it to two tablets a day per the recommendations and started noticing some shortness of breath and chest pain. Chest pain was on the left side of his chest and somewhat sharp in nature. He has never had pain like this before. He waited a few days and then decided he should present to the emergency room as it was not going away. He underwent pharmacologic nuclear stress testing with imaging showing an ejection fraction of 75% with reperfusion defect in the anterior, lateral and minimal in the inferior septal region. Because of this he was recommended cardiac catheterization. PAST MEDICAL HISTORY 1. Hypertension. 2. Hyperlipidemia. 3. Diabetes mellitus. 4. Descending aortic aneurysm. PAST SURGICAL HISTORY 1. Aortic valve replacement (mechanical [place] valve, 2000). 2. Cardiac catheterization (2000). Per the patient no significant coronary artery disease. ALLERGIES NO KNOWN DRUG ALLERGIES. MEDICATIONS 1. Coumadin 12.5 mg Saturday and Saturday, 10 mg Saturday, Saturday, , Saturday. 2. Losartan 100 mg daily. 3. Coreg 25 mg b.i.d. 4. Metformin 1000 mg b.i.d. 5. Cardizem CD 300 mg daily. 6. Crestor 10 mg daily. 7. Glimepiride 2 mg b.i.d. with meals. FAMILY HISTORY Father had a bypass in his 70s. Denies premature coronary artery disease or sudden cardiac within the family. SOCIAL HISTORY The patient quit smoking 4 days ago once starting Chantix. Previously smoked anywhere from one to two packs of cigarettes daily for 25 years. Denies alcohol. Denies illicit drug abuse. REVIEW OF SYSTEMS 14-systems were reviewed including osteopathic, pertinent positives and negatives above, otherwise negative. PHYSICAL EXAMINATION VITAL SIGNS: Temperature 97.7, heart rate 70, blood pressure 126/65, respirations 20, pulse ox 94% on 2 liters. GENERAL: In general the patient appears well in no acute distress, alert, awake and oriented x3. HEENT: Extraocular muscles intact. Mucous membranes moist. NECK: Supple. No JVD at 45 degrees. No carotid bruits heard bilaterally. Carotid upstroke is brisk in nature. CARDIOVASCULAR: Heart is regular rate and rhythm. Positive first and second heart sound with a metallic click noted. No murmurs noted. LUNGS: Clear to auscultation bilaterally. No wheezes, rhonchi or rales. ABDOMEN: Soft, nontender. Nondistended. No organomegaly noted. EXTREMITIES: Show no clubbing, cyanosis or edema. Femoral and distal pulses intact bilaterally. NEUROLOGIC: No focal deficits. SKIN: Warm, dry and intact. OSTEOPATHIC: Mild lordosis. No kyphoscoliosis or paraspinal tender points. LABORATORY FINDINGS Hemoglobin 12.8, hematocrit 38.8, platelets 209. INR 2.0. Potassium 3.7, BUN 11, creatinine 0.69. Hemoglobin A1c 7.1. Troponins negative x3. BNP 310. IMPRESSION 1. Chest pain atypical for coronary insufficiency. 2. Abnormal pharmacologic nuclear stress test with what appears to be possible ischemia in the anterior, inferior septal and lateral peralta. 3. History of AVR with a [place] mechanical valve (2000). 4. Cardiac catheterization showing no significant disease (2000). 5. Previous tobacco abuse, quitting recently. 6. Hypertension. 7. Hyperlipidemia. 8. Diabetes mellitus. 9. Descending aortic aneurysm per the patient which is stable by CT scan within the office. RECOMMENDATIONS 1. Mr. Arenas has been having chest pain and there is a concern for possible coronary artery disease with his stress test being abnormal. We will plan on cardiac catheterization on Saturday or Saturday. 2. We will continue him off Coumadin and at this time place him on a heparin drip due to his mechanical valve. Depending on his INR tomorrow will depend on when his cardiac catheterization will be. 3. He understands risks, benefits and alternatives and he consents as such. 4. We will also plan on checking a 2-D echo to look at his overall left ventricular function, cardiac structure and possible valvulopathies. 5. His metformin will be placed on hold for 48 hours post cardiac catheterization. 6. Post cardiac catheterization he will be placed back on a heparin drip and restarted on his Coumadin to get his INR levels to his goal therapeutic INR. Thank you for allowing me to see Reza Arenas. If there are any questions please do not hesitate to call. Jake Gómez DO VGP/KK /12:06 PM /9:00 PM
[2016-11-04 22:42] LABS: APTT (PATIENT) 42.1 SEC (24.3-30.1)
[2016-11-05] VITALS (26 sets, daily range): BP systolic 119–160; BP diastolic 68–92; PULSE 74–98; RESP 18–20; TEMP 97.9–98.6; O2SAT 92–97
[2016-11-05 06:19] LABS: AUTOMATED NEUTROPHIL # 4.5 TH/MM3 (1.8-7.7); BASOPHIL # 0.1 TH/MM3 (0-0.2); BASOPHIL % 1.1 % (0.0-2.0); EOSINOPHIL # 0.3 TH/MM3 (0-0.4); EOSINOPHIL % 4.4 % (0.0-4.0); HEMATOCRIT 38.3 % (39.0-51.0); HEMO FLAGS DIFF FINAL; LYMPH % 22.9 % (9.0-44.0); LYMPHOCYTE # 1.7 TH/MM3 (1.0-4.8); MEAN CELL VOLUME 84.9 FL (80.0-100.0); MEAN CORPUSCULAR HEMOGLOBIN 27.4 PG (27.0-34.0); MEAN CORPUSCULAR HGB CONC 32.3 % (32.0-36.0); MONO % 10.1 % (0.0-8.0); NEUT % 61.5 % (16.0-70.0); PLATELET COUNT 191 TH/MM3 (150-450); RED BLOOD COUNT 4.51 MIL/MM3 (4.50-5.90); RED CELL DISTRIBUTION WIDTH 15.8 % (11.6-17.2); WHITE BLOOD COUNT 7.3 TH/MM3 (4.0-11.0)
[2016-11-05] MEDS: INSULIN ASPART SUPPLEMENTAL SCALE SQ SCH ×4 (06:20→20:28)
[2016-11-05 06:46] LABS: BICARBONATE 32.5 MEQ/L (21.0-32.0); POTASSIUM 4.1 MEQ/L (3.5-5.1)
[2016-11-05] MEDS: HEPARIN-D5W INJ 250 ML IV SCH (06:48)
[2016-11-05 07:15] LABS: APTT (PATIENT) 40.1 SEC (24.3-30.1); INTERNATIONAL NORMALIZED RATIO 1.4 RATIO; PROTHROMBIN TIME - PATIENT 15.9 SEC (9.8-11.6)
[2016-11-05] MEDS: ASPIRIN 81 MG CHEW TAB CHEW SCH (09:00)
[2016-11-05] MEDS: ATORVASTATIN 20 MG TAB PO SCH (09:00)
[2016-11-05] MEDS: amLODIPine BESYLATE 5 MG TAB PO SCH ×2 (09:01→20:27)
[2016-11-05] MEDS: FUROSEMIDE 40 MG TAB PO SCH (09:01)
[2016-11-05] MEDS: CARVEDILOL 12.5 MG TAB PO SCH ×2 (09:02→20:27)
[2016-11-05] MEDS: LOSARTAN 50 MG TAB PO SCH (09:02)
[2016-11-05] MEDS: SODIUM CHLORIDE 0.9% FLUSH 10 ML FLUSH IV FLUSH SCH ×2 (09:03→20:28)
--- NOTE | 2016-11-05 09:21 | HHI.PR ---
Subjective Remarks This is a Pleasant 66 y/o Male with Aortic Valve replacement in 2000, who came to ER with Atypical Chest pain and Shortness of breath he has been on Coumadin therapy, has Hypertension, Hyperlipidemia, and Diabetes Mellitus, PCI 2000, seen by Doctor Rodney Moscoso eating disorder specialist and asked for Stress test, read as positive so he was transferred from Clinical Decision Unit, Hospitalized for Interventional eating disorder specialist Evaluation, Hospitalist called as Attending for today, he was seen by Doctor Jose Alfredo Haro recommended for Cardiac Cath. 11/04: Seen in his bedroom and discussed with nurse given replacement for potassium in 3.7 and also given magnesium replacement, 11/05: Stable in his bedroom was told he will have Cardiac Cath tomorrow, his INR today is 1.4 continue with Cardiac monitoring, No chest pain, no nausea, vomit or diarrhea discussed with nurse. Objective Vital Signs Date Time Temp Pulse Resp B/P Pulse Ox O2 Delivery O2 Flow Rate FiO2 11/05/16 07:00 84 11/05/16 06:00 82 11/05/16 05:00 88 11/05/16 04:00 96 11/05/16 03:00 97.9 84 160/92 92 11/05/16 03:00 80 11/05/16 02:00 74 11/05/16 01:00 74 11/05/16 00:00 76 11/04/16 23:00 69 11/04/16 23:00 97.5 76 137/70 91 11/04/16 22:00 70 11/04/16 21:53 93 21 11/04/16 21:00 74 11/04/16 20:00 76 11/04/16 19:00 81 11/04/16 19:00 98.9 98 123/67 91 11/04/16 18:59 98.9 66 20 137/84 97 11/04/16 15:58 97.6 66 20 141/75 97 11/04/16 10:53 97.7 70 20 126/65 94 I/O 11/04/16 11/04/16 11/04/16 11/05/16 11/05/16 11/05/16 07:00 15:00 23:00 07:00 15:00 23:00 Intake Total 200 ml 380 ml Output Total 300 ml Balance 200 ml 80 ml Intake Oral 240 ml IV Total 200 ml 140 ml Output Urine Total 300 ml # Voids 3 Result Diagram: 11/05/16 0435 11/05/16 0435 Imaging Last Impressions Myocardial Perfusion Scan Nuc Med 11/03/16 0000 Signed Impressions: Service Date/Time: Thursday, November 03, 2016 10:15 - CONCLUSION: Stress- induced ischemia as described above RISK CATEGORY: Intermediate (1-3%% Annual Mortality Rate) Armani Fiore MD FACR Chest X-Ray 11/02/16 1711 Signed Impressions: Service Date/Time: Wednesday, November 02, 2016 17:16 - CONCLUSION: Compensated cardiomegaly, previous aortic valve otherwise negative. Armani Fiore MD FACR Procedures Stress Test Other Results Laboratory Tests Test 11/02/16 11/02/16 11/05/16 17:15 23:09 04:35 Magnesium Level 1.6 MG/DL Total Bilirubin 0.5 MG/DL Aspartate Amino Transf 22 U/L (AST/SGOT) Alanine Aminotransferase 29 U/L (ALT/SGPT) Alkaline Phosphatase 60 U/L B-Type Natriuretic Peptide 310 PG/ML Total Protein 7.2 GM/DL Albumin 4.0 GM/DL Hemoglobin A1c 7.1 % Total Creatine Kinase 111 U/L Creatine Kinase MB 1.6 NG/ML Troponin I 0.02 NG/ML White Blood Count 7.3 TH/MM3 Red Blood Count 4.51 MIL/MM3 Hemoglobin 12.3 GM/DL Hematocrit 38.3 % Mean Corpuscular Volume 84.9 FL Mean Corpuscular Hemoglobin 27.4 PG Mean Corpuscular Hemoglobin 32.3 % Concent Red Cell Distribution Width 15.8 % Platelet Count 191 TH/MM3 Mean Platelet Volume 8.8 FL Neutrophils (%) (Auto) 61.5 % Lymphocytes (%) (Auto) 22.9 % Monocytes (%) (Auto) 10.1 % Eosinophils (%) (Auto) 4.4 % Basophils (%) (Auto) 1.1 % Neutrophils # (Auto) 4.5 TH/MM3 Lymphocytes # (Auto) 1.7 TH/MM3 Monocytes # (Auto) 0.7 TH/MM3 Eosinophils # (Auto) 0.3 TH/MM3 Basophils # (Auto) 0.1 TH/MM3 CBC Comment DIFF FINAL Differential Comment Prothrombin Time 15.9 SEC Prothromb Time International 1.4 RATIO Ratio Activated Partial 40.1 SEC Thromboplast Time Sodium Level 142 MEQ/L Potassium Level 4.1 MEQ/L Chloride Level 103 MEQ/L Carbon Dioxide Level 32.5 MEQ/L Anion Gap 7 MEQ/L Blood Urea Nitrogen 13 MG/DL Creatinine 0.76 MG/DL Estimat Glomerular Filtration 102 ML/MIN Rate Random Glucose 137 MG/DL Calcium Level 9.3 MG/DL Objective Remarks GENERAL: Obese patient in no acute distress. HEENT: Head is atraumatic and normocephalic. CARDIOVASCULAR: Regular rate and rhythm, systolic murmur present. RESPIRATORY: Clear to auscultation. Breath sounds equal bilaterally. No wheezes , rales, or rhonchi. Chest wall is nontender. No use of accessory muscles. GASTROINTESTINAL: Abdomen is nontender, nondistended. Abdomen soft. MUSCULOSKELETAL: No Clubbing cyanosis or edema. NEUROLOGICAL: Patient is alert and oriented. No focal deficits. SKIN: No rash and turgor is normal. multiple Tattoos Medications and IVs Current Medications Medications (Trade) Dose Ordered Sig/Herlinda Route Start Time Stop Time Status Last Admin (NS Flush) 2 ml UNSCH PRN IV FLUSH 11/02/16 19:00 (NS Flush) 2 ml BID IV FLUSH 11/02/16 21:00 11/05/16 09:03 (Tylenol) 500 mg Q4H PRN PO 11/02/16 19:00 ([place] 7.5-325 Mg) 1 tab Q4H PRN PO 11/02/16 19:00 (Morphine Inj) 2 mg Q4H PRN IV 11/02/16 19:00 (Zofran Inj) 4 mg Q6H PRN IV 11/02/16 19:00 (Nitrostat Sl) 0.4 mg Q5M PRN SL 11/02/16 19:00 (Coreg) 25 mg BID PO 11/03/16 09:30 11/05/16 09:02 (Cozaar) 100 mg DAILY PO 11/03/16 09:30 11/05/16 09:02 (Lipitor) 20 mg DAILY PO 11/03/16 09:30 11/05/16 09:00 (D50w (Vial) Inj) 25 ml UNSCH PRN IV 11/03/16 09:30 (Glucagon Inj) 1 mg UNSCH PRN IM/SQ 11/03/16 09:30 (Norvasc) 5 mg BID PO 11/03/16 21:00 11/05/16 09:01 (Lasix) 40 mg DAILY PO 11/03/16 14:45 11/05/16 09:01 (Restoril) 30 mg HS PRN PO 11/03/16 15:00 11/04/16 20:55 (Aspirin Chew) 81 mg DAILY CHEW 11/05/16 09:00 11/05/16 09:00 (Heparin Inj) 5,000 units UNSCH PRN IV 11/04/16 18:15 Heparin Sodium (Porcine) 2500 units 2,500 units UNSCH PRN IV 11/04/16 18:15 (Heparin-D5W Inj) 250 ml @ 0 mls/hr TITRATE IV 11/04/16 12:15 11/05/16 06:48 A/P Assessment and Plan 1. Atypical chest pain with Positive Stress test admitted for Interventional eating disorder specialist evaluation, on Cardiac Monitoring, Cardiac enzymes, EKG has Left Bundle branch block, seen by Doctor Danis in Chest pain center. seen by eating disorder specialist doctor Jose Alfredo and asked for Cardiac Catheterization. discussed with doctor Ocasio will perform Cardiac Cath tomorrow. 2. Hypertension Controlled. 3. History of Aortic Valve Replacement on Warfarin was continued INR 1.4. on heparin drip at this time. 4. Hyperlipidemia to continue Statin 5. DM II on hold Oral medicine and continue sliding scale, Hemoglobin A1C 7.1 6. Tobacco dependence Strongly recommended to stop smoking. 7. Obesity strongly recommended diet and exercise. 8. Electrolyte derangement replaced As Always a pleasure to talk with Interventional Machine Tester Doctor Jake Ocasio his Input and recommendations are highly appreciated. DVT prophylaxis Heparin drip. GI prophylaxis Pepcid Discharge Planning Once cleared by Cardiology Tyson Quintero MD Nov 05, 2016 09:21 Tyson Quintero MD Nov 05, 2016 09:21
[2016-11-05] MEDS: FAMOTIDINE 20 MG/2 ML VIAL IV PUSH SCH ×2 (12:38→23:23)
--- NOTE | 2016-11-05 16:10 | PD.CARD.PN ---
Subjective Subjective Remarks No chest pain, no shortness of breath Objective Medications Current Medications Medications (Trade) Dose Ordered Sig/Herlinda Route Start Time Stop Time Status Last Admin (NS Flush) 2 ml UNSCH PRN IV FLUSH 11/02/16 19:00 (NS Flush) 2 ml BID IV FLUSH 11/02/16 21:00 11/05/16 09:03 (Tylenol) 500 mg Q4H PRN PO 11/02/16 19:00 ([place] 7.5-325 Mg) 1 tab Q4H PRN PO 11/02/16 19:00 (Morphine Inj) 2 mg Q4H PRN IV 11/02/16 19:00 (Zofran Inj) 4 mg Q6H PRN IV 11/02/16 19:00 (Nitrostat Sl) 0.4 mg Q5M PRN SL 11/02/16 19:00 (Coreg) 25 mg BID PO 11/03/16 09:30 11/05/16 09:02 (Cozaar) 100 mg DAILY PO 11/03/16 09:30 11/05/16 09:02 (Lipitor) 20 mg DAILY PO 11/03/16 09:30 11/05/16 09:00 (D50w (Vial) Inj) 25 ml UNSCH PRN IV 11/03/16 09:30 (Glucagon Inj) 1 mg UNSCH PRN IM/SQ 11/03/16 09:30 (Norvasc) 5 mg BID PO 11/03/16 21:00 11/05/16 09:01 (Lasix) 40 mg DAILY PO 11/03/16 14:45 11/05/16 09:01 (Restoril) 30 mg HS PRN PO 11/03/16 15:00 11/04/16 20:55 (Aspirin Chew) 81 mg DAILY CHEW 11/05/16 09:00 11/05/16 09:00 (Heparin Inj) 5,000 units UNSCH PRN IV 11/04/16 18:15 Heparin Sodium (Porcine) 2500 units 2,500 units UNSCH PRN IV 11/04/16 18:15 (Heparin-D5W Inj) 250 ml @ 0 mls/hr TITRATE IV 11/04/16 12:15 11/05/16 06:48 (Pepcid Inj) 20 mg Q12H IV PUSH 11/05/16 11:00 11/05/16 12:38 Vital Signs / I&O Vital Signs Date Time Temp Pulse Resp B/P Pulse Ox O2 Delivery O2 Flow Rate FiO2 11/05/16 16:00 77 11/05/16 15:49 98.2 98 140/88 97 11/05/16 15:49 97 Room Air 11/05/16 15:00 80 11/05/16 14:00 82 11/05/16 13:00 80 11/05/16 12:00 82 11/05/16 12:00 98.4 98 138/86 97 11/05/16 12:00 96 Room Air 11/05/16 11:00 79 11/05/16 10:00 81 11/05/16 09:00 85 11/05/16 08:00 97 Room Air 11/05/16 08:00 82 11/05/16 08:00 98.6 98 143/87 97 11/05/16 07:00 84 11/05/16 06:00 82 11/05/16 05:00 88 11/05/16 04:00 96 11/05/16 03:00 97.9 84 160/92 92 11/05/16 03:00 80 11/05/16 02:00 74 11/05/16 01:00 74 11/05/16 00:00 76 11/04/16 23:00 69 11/04/16 23:00 97.5 76 137/70 91 11/04/16 22:00 70 11/04/16 21:53 93 21 11/04/16 21:00 74 11/04/16 20:00 76 11/04/16 19:00 81 11/04/16 19:00 98.9 98 123/67 91 11/04/16 18:59 98.9 66 20 137/84 97 I/O 11/04/16 11/04/16 11/04/16 11/05/16 11/05/16 11/05/16 07:00 15:00 23:00 07:00 15:00 23:00 Intake Total 200 ml 380 ml Output Total 300 ml Balance 200 ml 80 ml Intake Oral 240 ml IV Total 200 ml 140 ml Output Urine Total 300 ml # Voids 3 Physical Exam GENERAL: NAD, AAOx3 SKIN: Warm and dry. HEAD: Atraumatic. Normocephalic. EYES: Pupils equal and round. No scleral icterus. No injection or drainage. ENT: No nasal bleeding or discharge. Mucous membranes pink and moist. NECK: Trachea midline. No JVD. CARDIOVASCULAR: Regular rate and rhythm. Metal click noted RESPIRATORY: No accessory muscle use. Clear to auscultation. Breath sounds equal bilaterally. GASTROINTESTINAL: Abdomen soft, non-tender, nondistended. Hepatic and splenic margins not palpable. MUSCULOSKELETAL: Extremities without clubbing, cyanosis, or edema. No obvious deformities. NEUROLOGICAL: Awake and alert. No obvious cranial nerve deficits. Motor grossly within normal limits. Five out of 5 muscle strength in the arms and legs. Normal speech. PSYCHIATRIC: Appropriate mood and affect; insight and judgment normal. Laboratory Laboratory Tests Test 11/04/16 11/05/16 22:10 04:35 Activated Partial 42.1 SEC 40.1 SEC Thromboplast Time White Blood Count 7.3 TH/MM3 Red Blood Count 4.51 MIL/MM3 Hemoglobin 12.3 GM/DL Hematocrit 38.3 % Mean Corpuscular Volume 84.9 FL Mean Corpuscular Hemoglobin 27.4 PG Mean Corpuscular Hemoglobin 32.3 % Concent Red Cell Distribution Width 15.8 % Platelet Count 191 TH/MM3 Mean Platelet Volume 8.8 FL Neutrophils (%) (Auto) 61.5 % Lymphocytes (%) (Auto) 22.9 % Monocytes (%) (Auto) 10.1 % Eosinophils (%) (Auto) 4.4 % Basophils (%) (Auto) 1.1 % Neutrophils # (Auto) 4.5 TH/MM3 Lymphocytes # (Auto) 1.7 TH/MM3 Monocytes # (Auto) 0.7 TH/MM3 Eosinophils # (Auto) 0.3 TH/MM3 Basophils # (Auto) 0.1 TH/MM3 CBC Comment DIFF FINAL Differential Comment Prothrombin Time 15.9 SEC Prothromb Time International 1.4 RATIO Ratio Sodium Level 142 MEQ/L Potassium Level 4.1 MEQ/L Chloride Level 103 MEQ/L Carbon Dioxide Level 32.5 MEQ/L Anion Gap 7 MEQ/L Blood Urea Nitrogen 13 MG/DL Creatinine 0.76 MG/DL Estimat Glomerular Filtration 102 ML/MIN Rate Random Glucose 137 MG/DL Calcium Level 9.3 MG/DL Assessment and Plan Problem List: (1) Chest pain (2) H/O mechanical aortic valve replacement (3) Dyspnea Assessment and Plan 1) Abnormal stress test, plan for cardiac catheterization in the morning 2) Mechanical [facility] AVR, currently on heparin gtt 3) Con't current cardiac medications 4) NPO after midnight Problem Qualifiers (1) Chest pain: Qualified Code: R07.9 - Chest pain, unspecified type (2) Dyspnea: Qualified Code: R06.02 - Shortness of breath Jake Ocasio DO Nov 05, 2016 16:10
--- NOTE | 2016-11-05 16:40 | EC ---
Study Study Date:11/05/2016 STUDY CONCLUSIONS SUMMARY - Left ventricle: The cavity size was normal. Wall thickness was normal. Systolic function was mildly to moderately reduced. The estimated ejection fraction was in the range of 40% to 45%. Wall motion was normal; there were no regional wall motion abnormalities. - Aortic valve: Transvalvular velocity was increased. There was mild to moderate stenosis. Valve area: 1.04cm^2(VTI). Valve area: 1.11cm^2 (Vmax). - Mitral valve: Moderately calcified annulus. Mild regurgitation. - Left atrium: The atrium was moderately dilated. - Tricuspid valve: Mild regurgitation. - Pulmonary arteries: Systolic pressure was mildly increased. PA peak pressure: 38mm Hg (S). If LV function is below 40, please consider prescribing an ACEI or ARB or document rationale for non-use. PROCEDURE DATA STUDY STATUS: Elective. Procedure: Transthoracic echocardiography. Image quality was good. Scanning was performed from the parasternal, apical, and subcostal acoustic windows. Study completion: The patient tolerated the procedure well. Transthoracic echocardiography. M-mode, complete 2D, complete spectral Doppler, and color Doppler. Patient status: Inpatient. CARDIAC ANATOMY LEFT VENTRICLE: The cavity size was normal. Wall thickness was normal. Systolic function was mildly to moderately reduced. The estimated ejection fraction was in the range of 40% to 45%. Wall motion was normal; there were no regional wall motion abnormalities. AORTIC VALVE: Trileaflet; mildly thickened, moderately calcified leaflets. Doppler: Transvalvular velocity was increased. There was mild to moderate stenosis. No regurgitation. Valve area: 1.04cm^2(VTI). Valve area: 1.11cm^2 (Vmax). Mean gradient: 27mm Hg (S). Peak gradient: 48mm Hg (S). AORTA: Aortic root: The aortic root was normal in size. MITRAL VALVE: Moderately calcified annulus. Doppler: Transvalvular velocity was within the normal range. There was no evidence for stenosis. Mild regurgitation. LEFT ATRIUM: The atrium was moderately dilated. RIGHT VENTRICLE: The cavity size was normal. Wall thickness was normal. PULMONIC VALVE: Doppler: Transvalvular velocity was within the normal range. There was no evidence for stenosis. No regurgitation. TRICUSPID VALVE: Structurally normal valve. Doppler: Transvalvular velocity was within the normal range. Mild regurgitation. PULMONARY ARTERY: The main pulmonary artery was normal-sized. Systolic pressure was mildly increased. RIGHT ATRIUM: The atrium was normal in size. PERICARDIUM: There was no pericardial effusion. SYSTEMIC VEINS: Inferior vena cava: The vessel was normal in size. BASIC MEASUREMENTS ADULT Normal Left ventricle LV internal dimension, ED, chordal level, 51.5 mm 43-52 PLAX LV internal dimension, ES, chordal level, *42.9 mm 23-38 PLAX Fractional shortening, chordal level, PLAX *17 % >29 LV posterior wall thickness, ED 11 mm IVS/LVPW ratio, ED 0.95 <1.3 Ventricular septum Septal thickness, ED 10.5 mm Right ventricle RV internal dimension, ED, PLAX 35.8 mm 19-38 BASIC MEASUREMENTS ADULT Normal Aorta Root diameter, ED *38 mm 20-37 Left atrium Anterior-posterior dimension, ES *56 mm 19-40 LA/aortic root ratio 1.47 DOPPLER MEASUREMENTS ADULT Normal Main pulmonary artery Pressure, S *38 mm Hg =30 Aortic valve Peak velocity, S 348 cm/s Mean velocity, S 240 cm/s VTI, S 72.9 cm Mean gradient, S 27 mm Hg Peak gradient, S 48 mm Hg Valve area, VTI 1.04 cm^2 Valve area, Vmax 1.11 cm^2 Tricuspid valve Regurgitant peak velocity 266 cm/s Peak RV-RA gradient, S 28 mm Hg Maximal regurgitant velocity 266 cm/s Systemic veins Estimated CVP 10 mm Hg Right ventricle RV pressure, S *38 mm Hg <30 LEGEND: Mean values are shown as u=mean value. Asterisk (*) alvarado values outside specified normal range. Prepared and signed by Dimitrios Parr [id number]
[2016-11-05] MEDS: TEMAZEPAM 15 MG CAP PO PRN (20:27)
[2016-11-06] VITALS (28 sets, daily range): BP systolic 110–149; BP diastolic 54–89; PULSE 61–87; RESP 18–20; TEMP 97.8–98.4; O2SAT 92–95
[2016-11-06] MEDS: HEPARIN-D5W INJ 250 ML IV SCH (04:10)
[2016-11-06] MEDS: INSULIN ASPART SUPPLEMENTAL SCALE SQ SCH ×4 (05:59→21:05)
[2016-11-06 06:21] LABS: AUTOMATED NEUTROPHIL # 4.6 TH/MM3 (1.8-7.7); BASOPHIL # 0.1 TH/MM3 (0-0.2); BASOPHIL % 1.4 % (0.0-2.0); EOSINOPHIL # 0.3 TH/MM3 (0-0.4); EOSINOPHIL % 4.1 % (0.0-4.0); HEMATOCRIT 37.6 % (39.0-51.0); HEMO FLAGS DIFF FINAL; LYMPH % 16.5 % (9.0-44.0); LYMPHOCYTE # 1.1 TH/MM3 (1.0-4.8); MEAN CELL VOLUME 83.9 FL (80.0-100.0); MEAN CORPUSCULAR HEMOGLOBIN 27.2 PG (27.0-34.0); MEAN CORPUSCULAR HGB CONC 32.4 % (32.0-36.0); MONO % 11.9 % (0.0-8.0); NEUT % 66.1 % (16.0-70.0); PLATELET COUNT 195 TH/MM3 (150-450); RED BLOOD COUNT 4.48 MIL/MM3 (4.50-5.90); RED CELL DISTRIBUTION WIDTH 15.7 % (11.6-17.2); WHITE BLOOD COUNT 6.9 TH/MM3 (4.0-11.0)
[2016-11-06 06:28] LABS: APTT (PATIENT) 37.6 SEC (24.3-30.1); INTERNATIONAL NORMALIZED RATIO 1.2 RATIO; PROTHROMBIN TIME - PATIENT 13.2 SEC (9.8-11.6)
[2016-11-06 06:52] LABS: BICARBONATE 30.3 MEQ/L (21.0-32.0); POTASSIUM 3.9 MEQ/L (3.5-5.1)
[2016-11-06] MEDS: CARVEDILOL 12.5 MG TAB PO SCH ×2 (07:35→21:03)
[2016-11-06] MEDS: ASPIRIN 81 MG CHEW TAB CHEW SCH (07:35)
[2016-11-06] MEDS: amLODIPine BESYLATE 5 MG TAB PO SCH ×2 (07:35→21:02)
[2016-11-06] MEDS: LOSARTAN 50 MG TAB PO SCH (07:35)
[2016-11-06] MEDS: ATORVASTATIN 20 MG TAB PO SCH (07:35)
--- NOTE | 2016-11-06 07:45 | HHI.PR ---
Subjective Remarks This is a Pleasant 66 y/o Male with Aortic Valve replacement in 2000, who came to ER with Atypical Chest pain and Shortness of breath he has been on Coumadin therapy, has Hypertension, Hyperlipidemia, and Diabetes Mellitus, PCI 2000, seen by Doctor Rodney Moscoso ecommerce marketing specialist and asked for Stress test, read as positive so he was transferred from Clinical Decision Unit, Hospitalized for Interventional ecommerce marketing specialist Evaluation, Hospitalist called as Attending for today, he was seen by Doctor Jose Alfredo Haro recommended for Cardiac Cath. 11/04: Seen in his bedroom and discussed with nurse given replacement for potassium in 3.7 and also given magnesium replacement, 11/05: Stable in his bedroom was told he will have Cardiac Cath tomorrow, his INR today is 1.4 continue with Cardiac monitoring, 11/06: Seen in his bedroom in the presence of nurse, no new issues, No Nausea, vomit or diarrhea, Talked about his case with Interventional ecommerce marketing specialist Doctor Jake Ocasio appreciated assistance with Diagnosis of Atypical chest pain, abnormal Stress test, mechanical aortic valve, Mild Coronary artery disease on Cardiac Cath, taken as false positive Stress Test, Heparin drip meanwhile the INR gets therapeutic. Warfarin, Pharmacy to follow and follow with doctor Ashanti on discharge. Objective Vital Signs Date Time Temp Pulse Resp B/P Pulse Ox O2 Delivery O2 Flow Rate FiO2 11/06/16 07:33 92 21 11/06/16 07:30 93 Room Air 11/06/16 07:30 97.8 73 18 139/75 93 11/06/16 07:17 79 11/06/16 06:00 80 11/06/16 05:00 78 11/06/16 04:27 73 11/06/16 03:00 97.9 74 18 110/54 95 11/06/16 03:00 71 11/06/16 03:00 97 Room Air 11/06/16 02:00 79 11/06/16 01:00 68 11/06/16 00:00 75 11/05/16 23:00 97 Nasal Cannula 3.00 11/05/16 23:00 84 11/05/16 23:00 98.3 78 20 119/68 97 11/05/16 22:00 74 11/05/16 21:00 78 11/05/16 20:00 78 11/05/16 19:20 97 21 11/05/16 19:00 98.5 82 18 151/78 93 11/05/16 19:00 79 11/05/16 19:00 93 Room Air 11/05/16 18:00 82 11/05/16 17:00 78 11/05/16 16:00 77 11/05/16 15:49 98.2 98 140/88 97 11/05/16 15:49 97 Room Air 11/05/16 15:00 80 11/05/16 14:00 82 11/05/16 13:00 80 11/05/16 12:00 82 11/05/16 12:00 98.4 98 138/86 97 11/05/16 12:00 96 Room Air 11/05/16 11:00 79 11/05/16 10:00 81 11/05/16 09:00 85 11/05/16 08:00 97 Room Air 11/05/16 08:00 82 11/05/16 08:00 98.6 98 143/87 97 I/O 11/05/16 11/05/16 11/05/16 11/06/16 11/06/16 11/06/16 07:00 15:00 23:00 07:00 15:00 23:00 Intake Total 380 ml 1143 ml 930 ml Output Total 300 ml 650 ml 350 ml Balance 80 ml 493 ml 580 ml Intake Oral 240 ml 975 ml 240 ml IV Total 140 ml 168 ml 690 ml Output Urine Total 300 ml 650 ml 350 ml # Bowel Movements 0 0 Result Diagram: 11/06/16 0553 11/06/16 0553 Imaging Last Impressions Myocardial Perfusion Scan Nuc Med 11/03/16 0000 Signed Impressions: Service Date/Time: Thursday, November 03, 2016 10:15 - CONCLUSION: Stress- induced ischemia as described above RISK CATEGORY: Intermediate (1-3%% Annual Mortality Rate) Armani Fiore MD FACR Chest X-Ray 11/02/16 1711 Signed Impressions: Service Date/Time: Wednesday, November 02, 2016 17:16 - CONCLUSION: Compensated cardiomegaly, previous aortic valve otherwise negative. Armani Fiore MD FACR Procedures Stress Test Cardiac Cath Other Results Laboratory Tests Test 11/02/16 11/02/16 11/06/16 17:15 23:09 05:53 Magnesium Level 1.6 MG/DL Total Bilirubin 0.5 MG/DL Aspartate Amino Transf 22 U/L (AST/SGOT) Alanine Aminotransferase 29 U/L (ALT/SGPT) Alkaline Phosphatase 60 U/L B-Type Natriuretic Peptide 310 PG/ML Total Protein 7.2 GM/DL Albumin 4.0 GM/DL Hemoglobin A1c 7.1 % Total Creatine Kinase 111 U/L Creatine Kinase MB 1.6 NG/ML Troponin I 0.02 NG/ML White Blood Count 6.9 TH/MM3 Red Blood Count 4.48 MIL/MM3 Hemoglobin 12.2 GM/DL Hematocrit 37.6 % Mean Corpuscular Volume 83.9 FL Mean Corpuscular Hemoglobin 27.2 PG Mean Corpuscular Hemoglobin 32.4 % Concent Red Cell Distribution Width 15.7 % Platelet Count 195 TH/MM3 Mean Platelet Volume 8.2 FL Neutrophils (%) (Auto) 66.1 % Lymphocytes (%) (Auto) 16.5 % Monocytes (%) (Auto) 11.9 % Eosinophils (%) (Auto) 4.1 % Basophils (%) (Auto) 1.4 % Neutrophils # (Auto) 4.6 TH/MM3 Lymphocytes # (Auto) 1.1 TH/MM3 Monocytes # (Auto) 0.8 TH/MM3 Eosinophils # (Auto) 0.3 TH/MM3 Basophils # (Auto) 0.1 TH/MM3 CBC Comment DIFF FINAL Differential Comment Prothrombin Time 13.2 SEC Prothromb Time International 1.2 RATIO Ratio Activated Partial 37.6 SEC Thromboplast Time Sodium Level 142 MEQ/L Potassium Level 3.9 MEQ/L Chloride Level 105 MEQ/L Carbon Dioxide Level 30.3 MEQ/L Anion Gap 7 MEQ/L Blood Urea Nitrogen 12 MG/DL Creatinine 0.74 MG/DL Estimat Glomerular Filtration 105 ML/MIN Rate Random Glucose 142 MG/DL Calcium Level 9.0 MG/DL Objective Remarks GENERAL: Obese patient in no acute distress. HEENT: Head is atraumatic and normocephalic. CARDIOVASCULAR: Regular rate and rhythm, systolic murmur present. RESPIRATORY: Clear to auscultation. Breath sounds equal bilaterally. No wheezes , rales, or rhonchi. Chest wall is nontender. No use of accessory muscles. GASTROINTESTINAL: Abdomen is nontender, nondistended. Abdomen soft. MUSCULOSKELETAL: No Clubbing cyanosis or edema. NEUROLOGICAL: Patient is alert and oriented. No focal deficits. SKIN: No rash and turgor is normal. multiple Tattoos Medications and IVs Current Medications Medications (Trade) Dose Ordered Sig/Herlinda Route Start Time Stop Time Status Last Admin (NS Flush) 2 ml UNSCH PRN IV FLUSH 11/02/16 19:00 (NS Flush) 2 ml BID IV FLUSH 11/02/16 21:00 11/05/16 09:03 (Tylenol) 500 mg Q4H PRN PO 11/02/16 19:00 ([place] 7.5-325 Mg) 1 tab Q4H PRN PO 11/02/16 19:00 (Morphine Inj) 2 mg Q4H PRN IV 11/02/16 19:00 (Zofran Inj) 4 mg Q6H PRN IV 11/02/16 19:00 (Nitrostat Sl) 0.4 mg Q5M PRN SL 11/02/16 19:00 (Coreg) 25 mg BID PO 11/03/16 09:30 11/06/16 07:35 (Cozaar) 100 mg DAILY PO 11/03/16 09:30 11/06/16 07:35 (Lipitor) 20 mg DAILY PO 11/03/16 09:30 11/06/16 07:35 (D50w (Vial) Inj) 25 ml UNSCH PRN IV 11/03/16 09:30 (Glucagon Inj) 1 mg UNSCH PRN IM/SQ 11/03/16 09:30 (Norvasc) 5 mg BID PO 11/03/16 21:00 11/06/16 07:35 (Lasix) 40 mg DAILY PO 11/03/16 14:45 11/05/16 09:01 (Restoril) 30 mg HS PRN PO 11/03/16 15:00 11/05/16 20:27 (Aspirin Chew) 81 mg DAILY CHEW 11/05/16 09:00 11/06/16 07:35 (Heparin Inj) 5,000 units UNSCH PRN IV 11/04/16 18:15 Heparin Sodium (Porcine) 2500 units 2,500 units UNSCH PRN IV 11/04/16 18:15 (Heparin-D5W Inj) 250 ml @ 0 mls/hr TITRATE IV 11/04/16 12:15 11/06/16 04:10 (Pepcid Inj) 20 mg Q12H IV PUSH 11/05/16 11:00 11/05/16 23:23 A/P Assessment and Plan 1. Atypical chest pain with False Positive Stress test, status post Cardiac Cath Mild CAD, recommended to re start Warfarin follow INR, Pharmacy to follow, Follow Doctor Eliecer Burrell. 2. Hypertension Controlled. 3. History of Aortic Valve Replacement on Warfarin was continued INR 1.2. on heparin drip at this time. 4. Hyperlipidemia to continue Statin 5. DM II on hold Oral medicine and continue sliding scale, Hemoglobin A1C 7.1 6. Tobacco dependence Strongly recommended to stop smoking. 7. Obesity strongly recommended diet and exercise. 8. Electrolyte derangement replaced As Always a pleasure to talk with Interventional Lifestyle Consultant Doctor Jake Ocasio his Input and recommendations are highly appreciated. DVT prophylaxis Heparin drip. GI prophylaxis Pepcid Discharge Planning when INR therapeutic in 2.5 or over. Tyson Quintero MD Nov 06, 2016 07:45
[2016-11-06] MEDS ORDERED: HEPARIN-NS/PF INJ 500 ML ONE (08:08)
[2016-11-06] MEDS ORDERED: NITROGLYCERIN INJ 5 ML ONE (08:16)
[2016-11-06] MEDS ORDERED: VERAPAMIL HCL 5 MG/2 ML VIAL ONE (08:16)
[2016-11-06] MEDS ORDERED: MIDAZOLAM HCL 2 MG/2 ML VIAL ONE (08:16)
[2016-11-06] MEDS ORDERED: HEPARIN SODIUM - IV 10,000 UNITS/10 ML VIAL ONE (08:17)
[2016-11-06] MEDS ORDERED: SODIUM CHLORIDE 0.9% FLUSH 10 ML FLUSH IV FLUSH PRN (09:30)
[2016-11-06] MEDS: FUROSEMIDE 40 MG TAB PO SCH (09:58)
[2016-11-06] MEDS: SODIUM CHLORIDE 0.9% FLUSH 10 ML FLUSH IV FLUSH SCH ×2 (10:00→21:00)
--- NOTE | 2016-11-06 11:29 | PD.CARD.PN ---
Subjective Subjective Remarks Post-cath, doing well No chest pain, no shortness of breath Objective Medications Current Medications Medications (Trade) Dose Ordered Sig/Herlinda Route Start Time Stop Time Status Last Admin (Tylenol) 500 mg Q4H PRN PO 11/02/16 19:00 ([place] 7.5-325 Mg) 1 tab Q4H PRN PO 11/02/16 19:00 (Morphine Inj) 2 mg Q4H PRN IV 11/02/16 19:00 (Zofran Inj) 4 mg Q6H PRN IV 11/02/16 19:00 (Nitrostat Sl) 0.4 mg Q5M PRN SL 11/02/16 19:00 (Coreg) 25 mg BID PO 11/03/16 09:30 11/06/16 07:35 (Cozaar) 100 mg DAILY PO 11/03/16 09:30 11/06/16 07:35 (Lipitor) 20 mg DAILY PO 11/03/16 09:30 11/06/16 07:35 (D50w (Vial) Inj) 25 ml UNSCH PRN IV 11/03/16 09:30 (Glucagon Inj) 1 mg UNSCH PRN IM/SQ 11/03/16 09:30 (Norvasc) 5 mg BID PO 11/03/16 21:00 11/06/16 07:35 (Lasix) 40 mg DAILY PO 11/03/16 14:45 11/06/16 09:58 (Restoril) 30 mg HS PRN PO 11/03/16 15:00 11/05/16 20:27 (Aspirin Chew) 81 mg DAILY CHEW 11/05/16 09:00 11/06/16 07:35 (Heparin Inj) 5,000 units UNSCH PRN IV 11/04/16 18:15 Heparin Sodium (Porcine) 2500 units 2,500 units UNSCH PRN IV 11/04/16 18:15 (Heparin-D5W Inj) 250 ml @ 0 mls/hr TITRATE IV 11/04/16 12:15 11/06/16 04:10 (Pepcid Inj) 20 mg Q12H IV PUSH 11/05/16 11:00 11/05/16 23:23 (NS Flush) 2 ml BID IV FLUSH 11/06/16 21:00 (NS Flush) 2 ml UNSCH PRN IV FLUSH 11/06/16 09:30 Warfarin Sodium 10 mg 10 mg DAILY@16 PO 11/06/16 16:00 (Coumadin Consult Pharmacy) 0 ml @ 0 mls/hr UNSCH OTHER 11/06/16 09:45 (Coumadin) 2.5 mg DAILY@16 PO 11/06/16 16:00 (Coumadin Booklet) 1 ONCE ONCE OTHER 11/06/16 16:00 11/06/16 16:01 Vital Signs / I&O Vital Signs Date Time Temp Pulse Resp B/P Pulse Ox O2 Delivery O2 Flow Rate FiO2 11/06/16 11:10 76 11/06/16 10:15 64 11/06/16 09:44 70 11/06/16 07:33 92 21 11/06/16 07:30 93 Room Air 11/06/16 07:30 97.8 73 18 139/75 93 11/06/16 07:17 79 11/06/16 06:00 80 11/06/16 05:00 78 11/06/16 04:27 73 11/06/16 03:00 97.9 74 18 110/54 95 11/06/16 03:00 71 11/06/16 03:00 97 Room Air 11/06/16 02:00 79 11/06/16 01:00 68 11/06/16 00:00 75 11/05/16 23:00 97 Nasal Cannula 3.00 11/05/16 23:00 84 11/05/16 23:00 98.3 78 20 119/68 97 11/05/16 22:00 74 11/05/16 21:00 78 11/05/16 20:00 78 11/05/16 19:20 97 21 11/05/16 19:00 98.5 82 18 151/78 93 11/05/16 19:00 79 11/05/16 19:00 93 Room Air 11/05/16 18:00 82 11/05/16 17:00 78 11/05/16 16:00 77 11/05/16 15:49 98.2 98 140/88 97 11/05/16 15:49 97 Room Air 11/05/16 15:00 80 11/05/16 14:00 82 11/05/16 13:00 80 11/05/16 12:00 82 11/05/16 12:00 98.4 98 138/86 97 11/05/16 12:00 96 Room Air I/O 11/05/16 11/05/16 11/05/16 11/06/16 11/06/16 11/06/16 07:00 15:00 23:00 07:00 15:00 23:00 Intake Total 380 ml 1143 ml 930 ml Output Total 300 ml 650 ml 350 ml Balance 80 ml 493 ml 580 ml Intake Oral 240 ml 975 ml 240 ml IV Total 140 ml 168 ml 690 ml Output Urine Total 300 ml 650 ml 350 ml # Bowel Movements 0 0 Physical Exam GENERAL: NAD, AAOx3 SKIN: Warm and dry. HEAD: Atraumatic. Normocephalic. EYES: Pupils equal and round. No scleral icterus. No injection or drainage. ENT: No nasal bleeding or discharge. Mucous membranes pink and moist. NECK: Trachea midline. No JVD. CARDIOVASCULAR: Regular rate and rhythm. Metal click noted RESPIRATORY: No accessory muscle use. Clear to auscultation. Breath sounds equal bilaterally. GASTROINTESTINAL: Abdomen soft, non-tender, nondistended. Hepatic and splenic margins not palpable. MUSCULOSKELETAL: Extremities without clubbing, cyanosis, or edema. No obvious deformities. Right radial with TR band in place NEUROLOGICAL: Awake and alert. No obvious cranial nerve deficits. Motor grossly within normal limits. Five out of 5 muscle strength in the arms and legs. Normal speech. PSYCHIATRIC: Appropriate mood and affect; insight and judgment normal. Laboratory Laboratory Tests Test 11/06/16 05:53 White Blood Count 6.9 TH/MM3 Red Blood Count 4.48 MIL/MM3 Hemoglobin 12.2 GM/DL Hematocrit 37.6 % Mean Corpuscular Volume 83.9 FL Mean Corpuscular Hemoglobin 27.2 PG Mean Corpuscular Hemoglobin 32.4 % Concent Red Cell Distribution Width 15.7 % Platelet Count 195 TH/MM3 Mean Platelet Volume 8.2 FL Neutrophils (%) (Auto) 66.1 % Lymphocytes (%) (Auto) 16.5 % Monocytes (%) (Auto) 11.9 % Eosinophils (%) (Auto) 4.1 % Basophils (%) (Auto) 1.4 % Neutrophils # (Auto) 4.6 TH/MM3 Lymphocytes # (Auto) 1.1 TH/MM3 Monocytes # (Auto) 0.8 TH/MM3 Eosinophils # (Auto) 0.3 TH/MM3 Basophils # (Auto) 0.1 TH/MM3 CBC Comment DIFF FINAL Differential Comment Prothrombin Time 13.2 SEC Prothromb Time International 1.2 RATIO Ratio Activated Partial 37.6 SEC Thromboplast Time Sodium Level 142 MEQ/L Potassium Level 3.9 MEQ/L Chloride Level 105 MEQ/L Carbon Dioxide Level 30.3 MEQ/L Anion Gap 7 MEQ/L Blood Urea Nitrogen 12 MG/DL Creatinine 0.74 MG/DL Estimat Glomerular Filtration 105 ML/MIN Rate Random Glucose 142 MG/DL Calcium Level 9.0 MG/DL Assessment and Plan Problem List: (1) Chest pain (2) H/O mechanical aortic valve replacement (3) Dyspnea Assessment and Plan 1) Catheterization showing no significant coronary lesions, continue medical management 2) Mechanical [facility] AVR, heparin drip to start 1 hour after TR band removed 3) Coumadin restarted tonight 4) Can be transferred to Med-Surgical floor later this afternoon\ 5) Con't tobacco cessation Problem Qualifiers (1) Chest pain: Qualified Code: R07.9 - Chest pain, unspecified type (2) Dyspnea: Qualified Code: R06.02 - Shortness of breath Jake Ocasio DO Nov 06, 2016 11:29
--- NOTE | 2016-11-06 12:02 | MA ---
cc: JAKE GÓMEZ DO DATE 11/06/2016 PROCEDURE Coronary angiogram, moderate sedation 30 minutes PREPROCEDURE DIAGNOSIS Chest pain, abnormal stress test. POSTPROCEDURE DIAGNOSIS Mild coronary artery disease. MEDICATIONS GIVEN 1. Verapamil 2.5 mg 2. Nitro 200 mcg 3. Heparin 5000 units 4. Versed 1 mg 5. Fentanyl 50 mcg CONTRAST 60 cc FLUOROSCOPY 6.5 minutes ESTIMATED BLOOD LOSS 10 cc PROCEDURAL SUMMARY Reza Arenas is a pleasant 66-year-old male who presented to [facility] with chest pain. He underwent pharmacologic nuclear stress testing showing anterior lateral and inferior ischemia. Because of this, he was recommended cardiac catheterization. The risks, benefits and alternatives were explained and he consented as such. He was brought to the lab and prepped in the usual sterile fashion. The right radial artery was accessed using a modified Seldinger technique and placement of a 5/6 Slovak slender sheath. This was easily aspirated and flushed. A JR-4 was advanced over a J-wire to the ascending aortic root and was used for selective angiography of the right coronary system. This was then exchanged for a JL-3.5 which was used for selective angiography of the left coronary system. At the end of the case, JL-3.5 was removed over a J-wire. TR band was placed over the radial arteriotomy site to create hemostasis. The patient left the laborer road cardiovascularly stable. Left main is a normal-appearing vessel which is relatively short in nature and trifurcates into an LAD, ramus and circumflex. The LAD is a normal-appearing vessel with 20% diffuse disease in the midportion. It appears to give off two major diagonals with no significant disease. The ramus is an intermediate sized vessel with a 20% ostial lesion and no significant disease throughout. The left circumflex is a large dominant vessel that gives off a first obtuse marginal which is relatively small and a second obtuse marginal which is a larger vessel with no significant disease. It lastly gives off an L-PDA with no significant disease. The RCA appears to be a nondominant versus a codominant system with a large RV branch. No significant disease is seen throughout the right coronary system. Mechanical aortic valve appears to be functioning well under fluoroscopy. IMPRESSIONS 1. Atypical chest pain. 2. Pharmacologic nuclear stress test showing an anterior, lateral and inferior ischemia which appears to be a false positive. 3. Mild coronary artery disease by cardiac catheterization. 4. Mechanical aortic valve. RECOMMENDATIONS 1. Mr. Arenas's chest pain appeared to be atypical in nature. I believe that his stress test was a false positive at he has no significant blockages on catheterization. 2. A Heparin drip will be started one hour after his TR band is removed. 3. He will be placed back on Coumadin and plan on being in the hospital until his INR's are in a goal range for his mechanical aortic valve. 4. He will follow up with Dr. Burrell as previously scheduled. Thank you for allowing me to see Reza Arenas. If there are any questions, please do not hesitate to call. Jake Gómez DO VGP/DJL /10:27 AM /11:56 AM
[2016-11-06] MEDS: FAMOTIDINE 20 MG/2 ML VIAL IV PUSH SCH (12:10)
[2016-11-06] MEDS ORDERED: IOHEXOL 350 MG/ML 100 ML BTL (for Cath Lab) OTHER ONE (12:16)
[2016-11-06] MEDS: WARFARIN SOD 2.5 MG TAB PO SCH (16:09)
[2016-11-06] MEDS: WARFARIN SOD 10 MG TAB PO SCH (16:09)
[2016-11-06 19:48] LABS: APTT (PATIENT) 29.7 SEC (24.3-30.1)
[2016-11-07] VITALS (25 sets, daily range): BP systolic 102–150; BP diastolic 54–84; PULSE 62–83; RESP 14–20; TEMP 97.6–99.1; O2SAT 94–95
[2016-11-07] MEDS: FAMOTIDINE 20 MG/2 ML VIAL IV PUSH SCH ×3 (01:33→21:19)
[2016-11-07 04:05] LABS: BASOPHIL # 0.1 TH/MM3 (0-0.2); BASOPHIL % 0.8 % (0.0-2.0); EOSINOPHIL # 0.3 TH/MM3 (0-0.4); EOSINOPHIL % 4.5 % (0.0-4.0); HEMO FLAGS DIFF FINAL; LYMPH % 20.9 % (9.0-44.0); LYMPHOCYTE # 1.3 TH/MM3 (1.0-4.8); MEAN CELL VOLUME 83.3 FL (80.0-100.0); MEAN CORPUSCULAR HEMOGLOBIN 28.3 PG (27.0-34.0); MEAN CORPUSCULAR HGB CONC 33.9 % (32.0-36.0); MONO % 11.5 % (0.0-8.0); NEUT % 62.3 % (16.0-70.0); PLATELET COUNT 204 TH/MM3 (150-450); RED BLOOD COUNT 4.33 MIL/MM3 (4.50-5.90); RED CELL DISTRIBUTION WIDTH 15.5 % (11.6-17.2); WHITE BLOOD COUNT 6.4 TH/MM3 (4.0-11.0)
[2016-11-07 04:20] LABS: INTERNATIONAL NORMALIZED RATIO 1.1 RATIO; PROTHROMBIN TIME - PATIENT 12.2 SEC (9.8-11.6)
[2016-11-07 04:27] LABS: BICARBONATE 29.9 MEQ/L (21.0-32.0); POTASSIUM 3.7 MEQ/L (3.5-5.1)
[2016-11-07] MEDS: HEPARIN-D5W INJ 250 ML IV SCH ×2 (05:09→21:19)
[2016-11-07] MEDS: INSULIN ASPART SUPPLEMENTAL SCALE SQ SCH ×4 (05:24→21:22)
[2016-11-07] MEDS: ASPIRIN 81 MG CHEW TAB CHEW SCH (08:45)
[2016-11-07] MEDS: ATORVASTATIN 20 MG TAB PO SCH (08:45)
[2016-11-07] MEDS: SODIUM CHLORIDE 0.9% FLUSH 10 ML FLUSH IV FLUSH SCH ×2 (08:45→21:00)
[2016-11-07] MEDS: FUROSEMIDE 40 MG TAB PO SCH (08:45)
[2016-11-07] MEDS: amLODIPine BESYLATE 5 MG TAB PO SCH ×2 (08:45→21:20)
[2016-11-07] MEDS: CARVEDILOL 12.5 MG TAB PO SCH ×2 (08:45→21:20)
[2016-11-07] MEDS: LOSARTAN 50 MG TAB PO SCH (08:45)
--- NOTE | 2016-11-07 09:51 | HHI.PR ---
Subjective Remarks This is a Pleasant 66 y/o Male with Aortic Valve replacement in 2000, who came to ER with Atypical Chest pain and Shortness of breath he has been on Coumadin therapy, has Hypertension, Hyperlipidemia, and Diabetes Mellitus, PCI 2000, seen by Doctor Rodney Moscoso job service specialist and asked for Stress test, read as positive so he was transferred from Clinical Decision Unit, Hospitalized for Interventional job service specialist Evaluation, Hospitalist called as Attending for today, he was seen by Doctor Jose Alfredo Haro recommended for Cardiac Cath. 11/04: Seen in his bedroom and discussed with nurse given replacement for potassium in 3.7 and also given magnesium replacement, 11/05: Stable in his bedroom was told he will have Cardiac Cath tomorrow, his INR today is 1.4 continue with Cardiac monitoring, 11/06: Seen in his bedroom in the presence of nurse, no new issues, No Nausea, vomit or diarrhea, Talked about his case with Interventional job service specialist Doctor Jake Ocasio appreciated assistance with Diagnosis of Atypical chest pain, abnormal Stress test, mechanical aortic valve, Mild Coronary artery disease on Cardiac Cath, taken as false positive Stress Test, Heparin drip meanwhile the INR gets therapeutic. Warfarin, Pharmacy to follow and follow with doctor Ashanti on discharge. 11/07: Discussed with patient in the room, in the presence of his Mrs. Josseline Arenas, all questions explained to the best of my abilities, explained why his INR is 1.1 today, he just took the new dose of Warfarin yesterday, will start to see effects tomorrow, Pharmacy following. Objective Vital Signs Date Time Temp Pulse Resp B/P Pulse Ox O2 Delivery O2 Flow Rate FiO2 11/07/16 09:00 83 11/07/16 08:00 73 11/07/16 07:00 66 11/07/16 07:00 95 Room Air 11/07/16 07:00 97.9 80 20 145/84 95 11/07/16 06:00 72 11/07/16 05:14 98.1 82 14 102/54 95 11/07/16 05:00 62 11/07/16 04:00 74 11/07/16 03:30 80 11/07/16 03:00 Room Air 11/07/16 03:00 62 11/07/16 02:00 72 11/07/16 01:00 99.1 71 14 144/74 94 4/5/17 01:00 66 11/07/16 00:00 62 11/06/16 23:57 61 11/06/16 23:20 94 Room Air 11/06/16 23:00 64 11/06/16 22:00 86 11/06/16 21:56 93 21 11/06/16 21:00 80 11/06/16 20:00 97.8 82 18 149/89 93 11/06/16 20:00 85 11/06/16 19:38 Room Air 11/06/16 19:00 86 11/06/16 18:00 83 11/06/16 17:00 79 11/06/16 16:00 82 11/06/16 15:00 87 11/06/16 15:00 98.4 84 20 144/83 95 11/06/16 15:00 95 Room Air 11/06/16 14:00 80 11/06/16 13:00 76 11/06/16 12:14 75 11/06/16 11:40 94 Room Air 11/06/16 11:40 98.1 80 18 113/60 94 11/06/16 11:10 76 11/06/16 10:15 64 I/O 11/06/16 11/06/16 11/06/16 11/07/16 11/07/16 11/07/16 07:00 15:00 23:00 07:00 15:00 23:00 Intake Total 930 ml 1374 ml 165 ml Output Total 350 ml Balance 580 ml 1374 ml 165 ml Intake Oral 240 ml 1320 ml IV Total 690 ml 54 ml 165 ml Output Urine Total 350 ml # Voids 6 # Bowel Movements 0 1 Result Diagram: 11/07/16 0320 11/07/16 0320 Imaging Last Impressions Myocardial Perfusion Scan Nuc Med 11/03/16 0000 Signed Impressions: Service Date/Time: Thursday, November 03, 2016 10:15 - CONCLUSION: Stress- induced ischemia as described above RISK CATEGORY: Intermediate (1-3%% Annual Mortality Rate) Armani Fiore MD FACR Chest X-Ray 11/02/16 1711 Signed Impressions: Service Date/Time: Wednesday, November 02, 2016 17:16 - CONCLUSION: Compensated cardiomegaly, previous aortic valve otherwise negative. Armani Fiore MD FACR Procedures Stress Test Cardiac Cath Other Results Laboratory Tests Test 11/02/16 11/07/16 17:15 03:20 Hemoglobin A1c 7.1 % White Blood Count 6.4 TH/MM3 Red Blood Count 4.33 MIL/MM3 Hemoglobin 12.2 GM/DL Hematocrit 36.0 % Mean Corpuscular Volume 83.3 FL Mean Corpuscular Hemoglobin 28.3 PG Mean Corpuscular Hemoglobin 33.9 % Concent Red Cell Distribution Width 15.5 % Platelet Count 204 TH/MM3 Mean Platelet Volume 8.5 FL Neutrophils (%) (Auto) 62.3 % Lymphocytes (%) (Auto) 20.9 % Monocytes (%) (Auto) 11.5 % Eosinophils (%) (Auto) 4.5 % Basophils (%) (Auto) 0.8 % Neutrophils # (Auto) 4.0 TH/MM3 Lymphocytes # (Auto) 1.3 TH/MM3 Monocytes # (Auto) 0.7 TH/MM3 Eosinophils # (Auto) 0.3 TH/MM3 Basophils # (Auto) 0.1 TH/MM3 CBC Comment DIFF FINAL Differential Comment Prothrombin Time 12.2 SEC Prothromb Time International 1.1 RATIO Ratio Activated Partial 42.0 SEC Thromboplast Time Sodium Level 140 MEQ/L Potassium Level 3.7 MEQ/L Chloride Level 104 MEQ/L Carbon Dioxide Level 29.9 MEQ/L Anion Gap 6 MEQ/L Blood Urea Nitrogen 12 MG/DL Creatinine 0.69 MG/DL Estimat Glomerular Filtration 114 ML/MIN Rate Random Glucose 138 MG/DL Calcium Level 9.3 MG/DL Objective Remarks GENERAL: Obese patient in no acute distress. HEENT: Head is atraumatic and normocephalic. CARDIOVASCULAR: Regular rate and rhythm, systolic murmur present. RESPIRATORY: Clear to auscultation. Breath sounds equal bilaterally. No wheezes , rales, or rhonchi. Chest wall is nontender. No use of accessory muscles. GASTROINTESTINAL: Abdomen is nontender, nondistended. Abdomen soft. MUSCULOSKELETAL: No Clubbing cyanosis or edema. NEUROLOGICAL: Patient is alert and oriented. No focal deficits. SKIN: No rash and turgor is normal. multiple Tattoos Medications and IVs Current Medications Medications (Trade) Dose Ordered Sig/Herlinda Route Start Time Stop Time Status Last Admin (Tylenol) 500 mg Q4H PRN PO 11/02/16 19:00 ([place] 7.5-325 Mg) 1 tab Q4H PRN PO 11/02/16 19:00 (Morphine Inj) 2 mg Q4H PRN IV 11/02/16 19:00 (Zofran Inj) 4 mg Q6H PRN IV 11/02/16 19:00 (Nitrostat Sl) 0.4 mg Q5M PRN SL 11/02/16 19:00 (Coreg) 25 mg BID PO 11/03/16 09:30 11/07/16 08:45 (Cozaar) 100 mg DAILY PO 11/03/16 09:30 11/07/16 08:45 (Lipitor) 20 mg DAILY PO 11/03/16 09:30 11/07/16 08:45 (D50w (Vial) Inj) 25 ml UNSCH PRN IV 11/03/16 09:30 (Glucagon Inj) 1 mg UNSCH PRN IM/SQ 11/03/16 09:30 (Norvasc) 5 mg BID PO 11/03/16 21:00 11/07/16 08:45 (Lasix) 40 mg DAILY PO 11/03/16 14:45 11/07/16 08:45 (Restoril) 30 mg HS PRN PO 11/03/16 15:00 11/05/16 20:27 (Aspirin Chew) 81 mg DAILY CHEW 11/05/16 09:00 11/07/16 08:45 (Heparin Inj) 5,000 units UNSCH PRN IV 11/04/16 18:15 Heparin Sodium (Porcine) 2500 units 2,500 units UNSCH PRN IV 11/04/16 18:15 11/06/16 21:03 (Heparin-D5W Inj) 250 ml @ 0 mls/hr TITRATE IV 11/04/16 12:15 11/07/16 05:09 (Pepcid Inj) 20 mg Q12H IV PUSH 11/05/16 11:00 11/07/16 01:33 (NS Flush) 2 ml BID IV FLUSH 11/06/16 21:00 (NS Flush) 2 ml UNSCH PRN IV FLUSH 11/06/16 09:30 Warfarin Sodium 10 mg 10 mg DAILY@16 PO 11/06/16 16:00 11/06/16 16:09 (Coumadin Consult Pharmacy) 0 ml @ 0 mls/hr UNSCH OTHER 11/06/16 09:45 (Coumadin) 2.5 mg DAILY@16 PO 11/06/16 16:00 11/06/16 16:09 A/P Assessment and Plan 1. Atypical chest pain with False Positive Stress test, status post Cardiac Cath Mild CAD, recommended to re start Warfarin follow INR, Pharmacy to follow, Follow Doctor Eliecer Burrell. INR Goal 2.5 to 3.5 Hold Heparin once INR in 2.5 and HOLD Warfarin once INR in 3.5 or over. 2. Hypertension Controlled. 3. History of Aortic Valve Replacement on Warfarin was continued INR 1.1. on heparin drip at this time. 4. Hyperlipidemia to continue Statin 5. DM II on hold Oral medicine and continue sliding scale, Hemoglobin A1C 7.1 6. Tobacco dependence Strongly recommended to stop smoking. 7. Obesity strongly recommended diet and exercise. 8. Electrolyte derangement replaced, Potassium 3.7 DVT prophylaxis Heparin drip. GI prophylaxis Pepcid Discharge Planning when INR therapeutic in 2.5 or over. Tyson Quintero MD Nov 07, 2016 09:51
[2016-11-07 11:31] LABS: APTT (PATIENT) 38.6 SEC (24.3-30.1)
[2016-11-07] MEDS: WARFARIN SOD 2.5 MG TAB PO SCH (15:45)
[2016-11-07] MEDS: WARFARIN SOD 10 MG TAB PO SCH (15:45)
[2016-11-07] MEDS ORDERED: WARFARIN SOD 2.5 MG TAB PO SCH (16:00)
[2016-11-07 17:58] LABS: APTT (PATIENT) 41.1 SEC (24.3-30.1)
--- NOTE | 2016-11-07 21:15 | PD.CARD.PN ---
Subjective Subjective Remarks Patient seen this morning No chest pain, no shortness of breath Objective Medications Current Medications Medications (Trade) Dose Ordered Sig/Herlinda Route Start Time Stop Time Status Last Admin (Tylenol) 500 mg Q4H PRN PO 11/02/16 19:00 ([place] 7.5-325 Mg) 1 tab Q4H PRN PO 11/02/16 19:00 (Morphine Inj) 2 mg Q4H PRN IV 11/02/16 19:00 (Zofran Inj) 4 mg Q6H PRN IV 11/02/16 19:00 (Nitrostat Sl) 0.4 mg Q5M PRN SL 11/02/16 19:00 (Coreg) 25 mg BID PO 11/03/16 09:30 11/07/16 08:45 (Cozaar) 100 mg DAILY PO 11/03/16 09:30 11/07/16 08:45 (Lipitor) 20 mg DAILY PO 11/03/16 09:30 11/07/16 08:45 (D50w (Vial) Inj) 25 ml UNSCH PRN IV 11/03/16 09:30 (Glucagon Inj) 1 mg UNSCH PRN IM/SQ 11/03/16 09:30 (Norvasc) 5 mg BID PO 11/03/16 21:00 11/07/16 08:45 (Lasix) 40 mg DAILY PO 11/03/16 14:45 11/07/16 08:45 (Restoril) 30 mg HS PRN PO 11/03/16 15:00 11/05/16 20:27 (Aspirin Chew) 81 mg DAILY CHEW 11/05/16 09:00 11/07/16 08:45 (Heparin Inj) 5,000 units UNSCH PRN IV 11/04/16 18:15 Heparin Sodium (Porcine) 2500 units 2,500 units UNSCH PRN IV 11/04/16 18:15 11/06/16 21:03 (Heparin-D5W Inj) 250 ml @ 0 mls/hr TITRATE IV 11/04/16 12:15 11/07/16 05:09 (Pepcid Inj) 20 mg Q12H IV PUSH 11/05/16 11:00 11/07/16 11:19 (NS Flush) 2 ml BID IV FLUSH 11/06/16 21:00 (NS Flush) 2 ml UNSCH PRN IV FLUSH 11/06/16 09:30 Warfarin Sodium 10 mg 10 mg DAILY@16 PO 11/06/16 16:00 11/07/16 15:45 (Coumadin Consult Pharmacy) 0 ml @ 0 mls/hr UNSCH OTHER 11/06/16 09:45 (Coumadin) 2.5 mg DAILY@16 PO 11/06/16 16:00 11/07/16 15:45 Vital Signs / I&O Vital Signs Date Time Temp Pulse Resp B/P Pulse Ox O2 Delivery O2 Flow Rate FiO2 11/07/16 20:00 97.6 77 18 150/69 95 11/07/16 18:03 80 11/07/16 17:05 75 11/07/16 16:24 79 11/07/16 15:00 97.7 78 18 131/59 94 11/07/16 15:00 94 Room Air 11/07/16 15:00 83 11/07/16 14:00 82 11/07/16 13:00 75 11/07/16 12:00 75 11/07/16 11:00 97.8 78 20 139/71 94 11/07/16 11:00 75 11/07/16 11:00 94 Room Air 11/07/16 10:00 71 11/07/16 09:00 83 11/07/16 08:00 73 11/07/16 07:00 66 11/07/16 07:00 95 Room Air 11/07/16 07:00 97.9 80 20 145/84 95 11/07/16 06:00 72 11/07/16 05:14 98.1 82 14 102/54 95 11/07/16 05:00 62 11/07/16 04:00 74 11/07/16 03:30 80 11/07/16 03:00 Room Air 11/07/16 03:00 62 11/07/16 02:00 72 11/07/16 01:00 99.1 71 14 144/74 94 11/07/16 01:00 66 11/07/16 00:00 62 11/06/16 23:57 61 11/06/16 23:20 94 Room Air 11/06/16 23:00 64 11/06/16 22:00 86 11/06/16 21:56 93 21 I/O 11/06/16 11/06/16 11/06/16 11/07/16 11/07/16 11/07/16 07:00 15:00 23:00 07:00 15:00 23:00 Intake Total 930 ml 1374 ml 165 ml 960 ml Output Total 350 ml 600 ml Balance 580 ml 1374 ml 165 ml 360 ml Intake Oral 240 ml 1320 ml 960 ml IV Total 690 ml 54 ml 165 ml Output Urine Total 350 ml 600 ml # Voids 6 3 # Bowel Movements 0 1 1 Physical Exam GENERAL: NAD, AAOx3 SKIN: Warm and dry. HEAD: Atraumatic. Normocephalic. EYES: Pupils equal and round. No scleral icterus. No injection or drainage. ENT: No nasal bleeding or discharge. Mucous membranes pink and moist. NECK: Trachea midline. No JVD. CARDIOVASCULAR: Regular rate and rhythm. Metal click noted RESPIRATORY: No accessory muscle use. Clear to auscultation. Breath sounds equal bilaterally. GASTROINTESTINAL: Abdomen soft, non-tender, nondistended. Hepatic and splenic margins not palpable. MUSCULOSKELETAL: Extremities without clubbing, cyanosis, or edema. No obvious deformities. Right radial no hematoma/bruit, neurovascularly intact distally NEUROLOGICAL: Awake and alert. No obvious cranial nerve deficits. Motor grossly within normal limits. Five out of 5 muscle strength in the arms and legs. Normal speech. PSYCHIATRIC: Appropriate mood and affect; insight and judgment normal. Laboratory Laboratory Tests Test 11/07/16 11/07/16 11/07/16 03:20 11:10 17:25 White Blood Count 6.4 TH/MM3 Red Blood Count 4.33 MIL/MM3 Hemoglobin 12.2 GM/DL Hematocrit 36.0 % Mean Corpuscular Volume 83.3 FL Mean Corpuscular Hemoglobin 28.3 PG Mean Corpuscular Hemoglobin 33.9 % Concent Red Cell Distribution Width 15.5 % Platelet Count 204 TH/MM3 Mean Platelet Volume 8.5 FL Neutrophils (%) (Auto) 62.3 % Lymphocytes (%) (Auto) 20.9 % Monocytes (%) (Auto) 11.5 % Eosinophils (%) (Auto) 4.5 % Basophils (%) (Auto) 0.8 % Neutrophils # (Auto) 4.0 TH/MM3 Lymphocytes # (Auto) 1.3 TH/MM3 Monocytes # (Auto) 0.7 TH/MM3 Eosinophils # (Auto) 0.3 TH/MM3 Basophils # (Auto) 0.1 TH/MM3 CBC Comment DIFF FINAL Differential Comment Prothrombin Time 12.2 SEC Prothromb Time International 1.1 RATIO Ratio Activated Partial 42.0 SEC 38.6 SEC 41.1 SEC Thromboplast Time Sodium Level 140 MEQ/L Potassium Level 3.7 MEQ/L Chloride Level 104 MEQ/L Carbon Dioxide Level 29.9 MEQ/L Anion Gap 6 MEQ/L Blood Urea Nitrogen 12 MG/DL Creatinine 0.69 MG/DL Estimat Glomerular Filtration 114 ML/MIN Rate Random Glucose 138 MG/DL Calcium Level 9.3 MG/DL Assessment and Plan Problem List: (1) Chest pain (2) H/O mechanical aortic valve replacement (3) Dyspnea Assessment and Plan 1) Catheterization showing no significant coronary lesions, continue medical management 2) Mechanical [facility] [facility] AVR, heparin drip 3) Coumadin restarted 4) Can be transferred to Med-Surgical floor if needed 5) Con't tobacco cessation 6) Con't heparin drip until INR goal of 2.5 before discharge, does not want Lovenox as not previously covered by insurance and does not want to take shots in the belly Problem Qualifiers (1) Chest pain: Qualified Code: R07.9 - Chest pain, unspecified type (2) Dyspnea: Qualified Code: R06.02 - Shortness of breath Jake Ocasio DO Nov 07, 2016 21:15
[2016-11-07 22:51] LABS: APTT (PATIENT) 37.4 SEC (24.3-30.1)
[2016-11-08] VITALS (22 sets, daily range): BP systolic 124–159; BP diastolic 54–90; PULSE 61–92; RESP 16–18; TEMP 97.7–98.4; O2SAT 93–96
[2016-11-08] MEDS: INSULIN ASPART SUPPLEMENTAL SCALE SQ SCH ×4 (04:30→20:05)
[2016-11-08 06:13] LABS: APTT (PATIENT) 46.8 SEC (24.3-30.1); INTERNATIONAL NORMALIZED RATIO 1.2 RATIO; PROTHROMBIN TIME - PATIENT 13.7 SEC (9.8-11.6)
[2016-11-08] MEDS: amLODIPine BESYLATE 5 MG TAB PO SCH ×2 (08:36→20:06)
[2016-11-08] MEDS: LOSARTAN 50 MG TAB PO SCH (08:36)
[2016-11-08] MEDS: FUROSEMIDE 40 MG TAB PO SCH (08:36)
[2016-11-08] MEDS: ATORVASTATIN 20 MG TAB PO SCH (08:36)
[2016-11-08] MEDS: CARVEDILOL 12.5 MG TAB PO SCH ×2 (08:36→20:07)
[2016-11-08] MEDS: GLIMEPIRIDE 2 MG TAB PO SCH ×2 (08:44→16:32)
[2016-11-08] MEDS: SODIUM CHLORIDE 0.9% FLUSH 10 ML FLUSH IV FLUSH SCH ×2 (08:44→20:07)
--- NOTE | 2016-11-08 09:28 | PD.CARD.PN ---
Subjective Subjective Remarks No chest pain, no shortness of breath Objective Medications Current Medications Medications (Trade) Dose Ordered Sig/Herlinda Route Start Time Stop Time Status Last Admin (Tylenol) 500 mg Q4H PRN PO 11/02/16 19:00 ([place] 7.5-325 Mg) 1 tab Q4H PRN PO 11/02/16 19:00 (Morphine Inj) 2 mg Q4H PRN IV 11/02/16 19:00 (Zofran Inj) 4 mg Q6H PRN IV 11/02/16 19:00 (Nitrostat Sl) 0.4 mg Q5M PRN SL 11/02/16 19:00 (Coreg) 25 mg BID PO 11/03/16 09:30 11/08/16 08:36 (Cozaar) 100 mg DAILY PO 11/03/16 09:30 11/08/16 08:36 (Lipitor) 20 mg DAILY PO 11/03/16 09:30 11/08/16 08:36 (D50w (Vial) Inj) 25 ml UNSCH PRN IV 11/03/16 09:30 (Glucagon Inj) 1 mg UNSCH PRN IM/SQ 11/03/16 09:30 (Norvasc) 5 mg BID PO 11/03/16 21:00 11/08/16 08:36 (Lasix) 40 mg DAILY PO 11/03/16 14:45 11/08/16 08:36 (Restoril) 30 mg HS PRN PO 11/03/16 15:00 11/05/16 20:27 (Heparin Inj) 5,000 units UNSCH PRN IV 11/04/16 18:15 Heparin Sodium (Porcine) 2500 units 2,500 units UNSCH PRN IV 11/04/16 18:15 11/06/16 21:03 (Heparin-D5W Inj) 250 ml @ 0 mls/hr TITRATE IV 11/04/16 12:15 11/07/16 21:19 (NS Flush) 2 ml BID IV FLUSH 11/06/16 21:00 (NS Flush) 2 ml UNSCH PRN IV FLUSH 11/06/16 09:30 Warfarin Sodium 10 mg 10 mg DAILY@16 PO 11/06/16 16:00 11/07/16 15:45 (Coumadin Consult Pharmacy) 0 ml @ 0 mls/hr UNSCH OTHER 11/06/16 09:45 (Coumadin) 2.5 mg DAILY@16 PO 11/06/16 16:00 11/07/16 15:45 (Amaryl) 2 mg BIDAC PO 11/08/16 08:00 11/08/16 08:44 Vital Signs / I&O Vital Signs Date Time Temp Pulse Resp B/P Pulse Ox O2 Delivery O2 Flow Rate FiO2 11/08/16 06:00 64 11/08/16 05:00 62 11/08/16 04:00 98.1 76 18 144/79 95 11/08/16 04:00 Room Air 11/08/16 04:00 61 11/08/16 03:00 68 11/08/16 02:00 62 11/08/16 01:00 70 11/08/16 00:00 97.9 75 16 125/78 93 11/08/16 00:00 61 11/08/16 00:00 Room Air 11/07/16 23:00 66 11/07/16 22:00 66 11/07/16 21:00 66 11/07/16 20:00 74 11/07/16 20:00 97.6 77 18 150/69 95 11/07/16 19:00 Room Air 11/07/16 18:03 80 11/07/16 17:05 75 11/07/16 16:24 79 11/07/16 15:00 97.7 78 18 131/59 94 11/07/16 15:00 94 Room Air 11/07/16 15:00 83 11/07/16 14:00 82 11/07/16 13:00 75 11/07/16 12:00 75 11/07/16 11:00 97.8 78 20 139/71 94 11/07/16 11:00 75 11/07/16 11:00 94 Room Air 11/07/16 10:00 71 I/O 11/07/16 11/07/16 11/07/16 11/08/16 11/08/16 11/08/16 07:00 15:00 23:00 07:00 15:00 23:00 Intake Total 165 ml 960 ml Output Total 600 ml Balance 165 ml 360 ml Intake Oral 960 ml IV Total 165 ml Output Urine Total 600 ml # Voids 3 # Bowel Movements 1 Physical Exam GENERAL: NAD, AAOx3 SKIN: Warm and dry. HEAD: Atraumatic. Normocephalic. EYES: Pupils equal and round. No scleral icterus. No injection or drainage. ENT: No nasal bleeding or discharge. Mucous membranes pink and moist. NECK: Trachea midline. No JVD. CARDIOVASCULAR: Regular rate and rhythm. Metal click noted RESPIRATORY: No accessory muscle use. Clear to auscultation. Breath sounds equal bilaterally. GASTROINTESTINAL: Abdomen soft, non-tender, nondistended. Hepatic and splenic margins not palpable. MUSCULOSKELETAL: Extremities without clubbing, cyanosis, or edema. No obvious deformities. Right radial no hematoma/bruit, neurovascularly intact distally NEUROLOGICAL: Awake and alert. No obvious cranial nerve deficits. Motor grossly within normal limits. Five out of 5 muscle strength in the arms and legs. Normal speech. PSYCHIATRIC: Appropriate mood and affect; insight and judgment normal. Laboratory Laboratory Tests Test 11/07/16 11/07/16 11/07/16 11/08/16 11:10 17:25 22:30 05:13 Activated Partial 38.6 SEC 41.1 SEC 37.4 SEC 46.8 SEC Thromboplast Time Prothrombin Time 13.7 SEC Prothromb Time International 1.2 RATIO Ratio Assessment and Plan Problem List: (1) Chest pain (2) H/O mechanical aortic valve replacement (3) Dyspnea Assessment and Plan 1) Catheterization showing no significant coronary lesions, continue medical management 2) Mechanical [facility] AVR, heparin drip 3) Coumadin restarted 4) Can be transferred to Med-Surgical floor if needed 5) Con't tobacco cessation 6) Con't heparin drip until INR goal of 2.5 before discharge, does not want Lovenox as not previously covered by insurance and does not want to take shots in the belly 7) Can ambulate PRN, not on bedrest Problem Qualifiers (1) Chest pain: Qualified Code: R07.9 - Chest pain, unspecified type (2) Dyspnea: Qualified Code: R06.02 - Shortness of breath Jake Ocasio DO Nov 08, 2016 09:28
--- NOTE | 2016-11-08 09:37 | HHI.PR ---
Subjective Remarks Follow-up chest pain and aVR. No further chest pain. Still subtherapeutic on Coumadin and heparin. Discussed with RN Objective Vitals Vital Signs Date Time Temp Pulse Resp B/P Pulse Ox O2 Delivery O2 Flow Rate FiO2 11/08/16 09:14 98.4 80 18 124/63 94 11/08/16 09:14 94 Room Air 11/08/16 06:00 64 11/08/16 05:00 62 11/08/16 04:00 98.1 76 18 144/79 95 11/08/16 04:00 Room Air 11/08/16 04:00 61 11/08/16 03:00 68 11/08/16 02:00 62 11/08/16 01:00 70 11/08/16 00:00 97.9 75 16 125/78 93 11/08/16 00:00 61 11/08/16 00:00 Room Air 11/07/16 23:00 66 11/07/16 22:00 66 11/07/16 21:00 66 11/07/16 20:00 74 11/07/16 20:00 97.6 77 18 150/69 95 11/07/16 19:00 Room Air 11/07/16 18:03 80 11/07/16 17:05 75 11/07/16 16:24 79 11/07/16 15:00 97.7 78 18 131/59 94 11/07/16 15:00 94 Room Air 11/07/16 15:00 83 11/07/16 14:00 82 11/07/16 13:00 75 11/07/16 12:00 75 11/07/16 11:00 97.8 78 20 139/71 94 11/07/16 11:00 75 11/07/16 11:00 94 Room Air 11/07/16 10:00 71 I/O 11/07/16 11/07/16 11/07/16 11/08/16 11/08/16 11/08/16 07:00 15:00 23:00 07:00 15:00 23:00 Intake Total 165 ml 960 ml Output Total 600 ml Balance 165 ml 360 ml Intake Oral 960 ml IV Total 165 ml Output Urine Total 600 ml # Voids 3 # Bowel Movements 1 Result Diagram: 11/07/16 0320 11/07/16 0320 Imaging Last Impressions Myocardial Perfusion Scan Nuc Med 11/03/16 0000 Signed Impressions: Service Date/Time: Thursday, November 03, 2016 10:15 - CONCLUSION: Stress- induced ischemia as described above RISK CATEGORY: Intermediate (1-3%% Annual Mortality Rate) Armani Fiore MD FACR Chest X-Ray 11/02/16 1711 Signed Impressions: Service Date/Time: Wednesday, November 02, 2016 17:16 - CONCLUSION: Compensated cardiomegaly, previous aortic valve otherwise negative. Armani Fiore MD FACR Objective Remarks GENERAL: Obese patient in no acute distress. HEENT: Head is atraumatic and normocephalic. CARDIOVASCULAR: Regular rate and rhythm, systolic murmur present. RESPIRATORY: Clear to auscultation. Breath sounds equal bilaterally. No wheezes , rales, or rhonchi. Chest wall is nontender. No use of accessory muscles. GASTROINTESTINAL: Abdomen is nontender, nondistended. Abdomen soft. MUSCULOSKELETAL: No Clubbing cyanosis or edema. NEUROLOGICAL: Patient is alert and oriented. No focal deficits. SKIN: No rash and turgor is normal. Procedures Cardiac catheterization A/P Problem List: (1) Chest pain ICD Code: R07.9 Status: Acute (2) H/O mechanical aortic valve replacement ICD Code: Z95.2 Status: Acute Assessment and Plan 1. Atypical chest pain with False Positive Stress test, status post Cardiac Cath Mild CAD, recommended to re start Warfarin follow INR, Pharmacy to follow, Follow Doctor Eliecer Burrell. INR Goal 2.5 to 3.5 Discontinue Heparin once INR in 2.5 2. Hypertension Controlled. 3. History of Aortic Valve Replacement on Warfarin and heparin drip at this time. 4. Hyperlipidemia to continue Statin 5. DM II on restart glipizide and continue sliding scale, Hemoglobin A1C 7.1 . Repeat BMP in the morning if unremarkable restart metformin 6. Tobacco dependence Strongly recommended to stop smoking. 7. Obesity strongly recommended diet and exercise. 8. Electrolyte derangement replaced, Potassium 3.7 DVT prophylaxis Heparin drip. GI prophylaxis Pepcid Discharge Planning DC when INR over 2.5. Patient does not want to use Lovenox for bridging Problem Qualifiers (1) Chest pain: Qualified Code: R07.9 - Chest pain, unspecified type Kevin Rico MD Nov 08, 2016 09:36
[2016-11-08 11:49] LABS: APTT (PATIENT) 49.9 SEC (24.3-30.1)
[2016-11-08] MEDS: WARFARIN SOD 2.5 MG TAB PO SCH (16:32)
[2016-11-08] MEDS: WARFARIN SOD 10 MG TAB PO SCH (16:32)
[2016-11-09] VITALS (13 sets, daily range): BP systolic 112–143; BP diastolic 54–87; PULSE 60–87; RESP 18–20; TEMP 97.3–98.2; O2SAT 94–97
[2016-11-09] MEDS: HEPARIN-D5W INJ 250 ML IV SCH ×2 (02:15→18:28)
[2016-11-09] MEDS: INSULIN ASPART SUPPLEMENTAL SCALE SQ SCH ×4 (04:24→20:03)
[2016-11-09] MEDS: GLIMEPIRIDE 2 MG TAB PO SCH ×2 (04:24→16:37)
[2016-11-09 07:04] LABS: INTERNATIONAL NORMALIZED RATIO 1.6 RATIO; PROTHROMBIN TIME - PATIENT 18.4 SEC (9.8-11.6)
[2016-11-09 07:18] LABS: MAGNESIUM 1.7 MG/DL (1.5-2.5); POTASSIUM 4.1 MEQ/L (3.5-5.1)
[2016-11-09] MEDS: SODIUM CHLORIDE 0.9% FLUSH 10 ML FLUSH IV FLUSH SCH ×2 (09:00→20:00)
[2016-11-09] MEDS: metFORMIN HCL 500 MG TAB PO SCH ×2 (09:06→18:26)
[2016-11-09] MEDS: ATORVASTATIN 20 MG TAB PO SCH (09:06)
[2016-11-09] MEDS: FUROSEMIDE 40 MG TAB PO SCH (09:06)
[2016-11-09] MEDS: CARVEDILOL 12.5 MG TAB PO SCH ×2 (09:06→20:00)
[2016-11-09] MEDS: amLODIPine BESYLATE 5 MG TAB PO SCH ×2 (09:06→20:00)
[2016-11-09] MEDS: LOSARTAN 50 MG TAB PO SCH (09:06)
--- NOTE | 2016-11-09 10:25 | HHI.PR ---
Subjective Remarks F/u Cp and AVR. No further chest pain. Patient on Coumadin and heparin drip no gross bleeding. Discussed with RN and cardiology, discharge when INR over 2.5 Objective Vitals Vital Signs Date Time Temp Pulse Resp B/P Pulse Ox O2 Delivery O2 Flow Rate FiO2 11/09/16 07:37 97.6 68 18 131/74 95 11/09/16 07:37 95 Room Air 11/09/16 06:00 64 11/09/16 05:00 67 11/09/16 04:00 64 11/09/16 04:00 Room Air 11/09/16 04:00 97.6 70 18 124/65 95 11/09/16 03:00 68 11/09/16 02:00 60 11/09/16 01:00 62 11/09/16 00:00 Room Air 11/09/16 00:00 82 11/09/16 00:00 97.3 78 18 143/87 95 11/08/16 23:00 66 11/08/16 22:00 64 11/08/16 21:00 68 11/08/16 20:00 79 11/08/16 20:00 Room Air 11/08/16 20:00 98.0 78 16 159/90 96 11/08/16 16:15 98.3 68 18 128/72 96 11/08/16 16:15 96 Room Air 11/08/16 15:00 66 11/08/16 13:00 74 11/08/16 12:00 74 11/08/16 11:36 95 Room Air 11/08/16 11:36 97.7 71 18 125/54 95 11/08/16 11:00 75 I/O 11/08/16 11/08/16 11/08/16 11/09/16 11/09/16 11/09/16 07:00 15:00 23:00 07:00 15:00 23:00 Intake Total 1178 ml 1140 ml Output Total 1225 ml Balance -47 ml 1140 ml Intake Oral 600 ml 570 ml IV Total 578 ml 570 ml Output Urine Total 1225 ml # Voids 2 # Bowel Movements 1 1 Result Diagram: 11/07/16 0320 11/09/16 0558 Imaging Last Impressions Myocardial Perfusion Scan Nuc Med 11/03/16 0000 Signed Impressions: Service Date/Time: Thursday, November 03, 2016 10:15 - CONCLUSION: Stress- induced ischemia as described above RISK CATEGORY: Intermediate (1-3%% Annual Mortality Rate) Armani Fiore MD FACR Chest X-Ray 11/02/16 1719 Signed Impressions: Service Date/Time: Wednesday, November 02, 2016 17:16 - CONCLUSION: Compensated cardiomegaly, previous aortic valve otherwise negative. Armani Fiore MD FACR Objective Remarks GENERAL: Obese patient in no acute distress. HEENT: Head is atraumatic and normocephalic. CARDIOVASCULAR: Regular rate and rhythm, systolic murmur present. RESPIRATORY: Clear to auscultation. Breath sounds equal bilaterally. No wheezes , rales, or rhonchi. Chest wall is nontender. No use of accessory muscles. GASTROINTESTINAL: Abdomen is nontender, nondistended. Abdomen soft. MUSCULOSKELETAL: No Clubbing cyanosis or edema. NEUROLOGICAL: Patient is alert and oriented. Nonfocal SKIN: No rash and turgor is normal. Procedures Cardiac catheterization A/P Problem List: (1) Chest pain ICD Code: R07.9 Status: Acute (2) H/O mechanical aortic valve replacement ICD Code: Z95.2 Status: Acute Assessment and Plan 1. Atypical chest pain with False Positive Stress test, status post Cardiac Cath Mild CAD, recommended to re start Warfarin follow INR, Pharmacy to follow, Follow Doctor Eliecer Burrell. INR Goal 2.5 to 3.5 Discontinue Heparin once INR in 2.5 2. Hypertension Controlled. 3. History of Aortic Valve Replacement on Warfarin and heparin drip at this time. 4. Hyperlipidemia to continue Statin 5. DM II on restart glipizide and continue sliding scale, Hemoglobin A1C 7.1 . Repeat BMP unremarkable restart metformin 6. Tobacco dependence Strongly recommended to stop smoking. 7. Obesity strongly recommended diet and exercise. 8. Electrolyte derangement replaced, Potassium 3.7 DVT prophylaxis Heparin drip and Coumadin. GI prophylaxis Pepcid Discharge Planning DC when INR over 2.5. Patient does not want to use Lovenox for bridging Problem Qualifiers (1) Chest pain: Qualified Code: R07.9 - Chest pain, unspecified type Kevin Rico MD Nov 09, 2016 10:25
--- NOTE | 2016-11-09 11:08 | PD.CARD.PN ---
Subjective Subjective Remarks No chest pain, no shortness of breath Up and ambulating Objective Medications Current Medications Medications (Trade) Dose Ordered Sig/Herlinda Route Start Time Stop Time Status Last Admin (Tylenol) 500 mg Q4H PRN PO 11/02/16 19:00 ([place] 7.5-325 Mg) 1 tab Q4H PRN PO 11/02/16 19:00 (Morphine Inj) 2 mg Q4H PRN IV 11/02/16 19:00 (Zofran Inj) 4 mg Q6H PRN IV 11/02/16 19:00 (Nitrostat Sl) 0.4 mg Q5M PRN SL 11/02/16 19:00 (Coreg) 25 mg BID PO 11/03/16 09:30 11/09/16 09:06 (Cozaar) 100 mg DAILY PO 11/03/16 09:30 11/09/16 09:06 (Lipitor) 20 mg DAILY PO 11/03/16 09:30 11/09/16 09:06 (D50w (Vial) Inj) 25 ml UNSCH PRN IV 11/03/16 09:30 (Glucagon Inj) 1 mg UNSCH PRN IM/SQ 11/03/16 09:30 (Norvasc) 5 mg BID PO 11/03/16 21:00 11/09/16 09:06 (Lasix) 40 mg DAILY PO 11/03/16 14:45 11/09/16 09:06 (Restoril) 30 mg HS PRN PO 11/03/16 15:00 11/05/16 20:27 (Heparin Inj) 5,000 units UNSCH PRN IV 11/04/16 18:15 Heparin Sodium (Porcine) 2500 units 2,500 units UNSCH PRN IV 11/04/16 18:15 11/06/16 21:03 (Heparin-D5W Inj) 250 ml @ 0 mls/hr TITRATE IV 11/04/16 12:15 11/09/16 02:15 (NS Flush) 2 ml BID IV FLUSH 11/06/16 21:00 11/08/16 20:07 (NS Flush) 2 ml UNSCH PRN IV FLUSH 11/06/16 09:30 Warfarin Sodium 10 mg 10 mg DAILY@16 PO 11/06/16 16:00 4/6/17 16:32 (Coumadin Consult Pharmacy) 0 ml @ 0 mls/hr UNSCH OTHER 11/06/16 09:45 (Coumadin) 2.5 mg DAILY@16 PO 11/06/16 16:00 11/08/16 16:32 (Amaryl) 2 mg BIDAC PO 11/08/16 08:00 11/09/16 04:24 (Glucophage) 1,000 mg BIDPC PO 11/09/16 09:00 11/09/16 09:06 Vital Signs / I&O Vital Signs Date Time Temp Pulse Resp B/P Pulse Ox O2 Delivery O2 Flow Rate FiO2 11/09/16 07:37 97.6 68 18 131/74 95 11/09/16 07:37 95 Room Air 11/09/16 06:00 64 11/09/16 05:00 67 11/09/16 04:00 64 11/09/16 04:00 Room Air 11/09/16 04:00 97.6 70 18 124/65 95 11/09/16 03:00 68 11/09/16 02:00 60 11/09/16 01:00 62 11/09/16 00:00 Room Air 11/09/16 00:00 82 11/09/16 00:00 97.3 78 18 143/87 95 11/08/16 23:00 66 11/08/16 22:00 64 11/08/16 21:00 68 11/08/16 20:00 79 11/08/16 20:00 Room Air 11/08/16 20:00 98.0 78 16 159/90 96 11/08/16 16:15 98.3 68 18 128/72 96 11/08/16 16:15 96 Room Air 11/08/16 15:00 66 11/08/16 13:00 74 11/08/16 12:00 74 11/08/16 11:36 95 Room Air 11/08/16 11:36 97.7 71 18 125/54 95 I/O 11/08/16 11/08/16 11/08/16 11/09/16 11/09/16 11/09/16 07:00 15:00 23:00 07:00 15:00 23:00 Intake Total 1178 ml 1140 ml Output Total 1225 ml Balance -47 ml 1140 ml Intake Oral 600 ml 570 ml IV Total 578 ml 570 ml Output Urine Total 1225 ml # Voids 2 # Bowel Movements 1 1 Physical Exam GENERAL: NAD, AAOx3 SKIN: Warm and dry. HEAD: Atraumatic. Normocephalic. EYES: Pupils equal and round. No scleral icterus. No injection or drainage. ENT: No nasal bleeding or discharge. Mucous membranes pink and moist. NECK: Trachea midline. No JVD. CARDIOVASCULAR: Regular rate and rhythm. Metal click noted RESPIRATORY: No accessory muscle use. Clear to auscultation. Breath sounds equal bilaterally. GASTROINTESTINAL: Abdomen soft, non-tender, nondistended. Hepatic and splenic margins not palpable. MUSCULOSKELETAL: Extremities without clubbing, cyanosis, or edema. No obvious deformities. Right radial no hematoma/bruit, neurovascularly intact distally NEUROLOGICAL: Awake and alert. No obvious cranial nerve deficits. Motor grossly within normal limits. Five out of 5 muscle strength in the arms and legs. Normal speech. PSYCHIATRIC: Appropriate mood and affect; insight and judgment normal. Laboratory Laboratory Tests Test 11/08/16 11/09/16 11:23 05:58 Activated Partial 49.9 SEC 63.0 SEC Thromboplast Time Prothrombin Time 18.4 SEC Prothromb Time International 1.6 RATIO Ratio Sodium Level 140 MEQ/L Potassium Level 4.1 MEQ/L Chloride Level 103 MEQ/L Carbon Dioxide Level 29.0 MEQ/L Anion Gap 8 MEQ/L Blood Urea Nitrogen 13 MG/DL Creatinine 0.74 MG/DL Estimat Glomerular Filtration 105 ML/MIN Rate Random Glucose 141 MG/DL Calcium Level 9.5 MG/DL Magnesium Level 1.7 MG/DL Assessment and Plan Problem List: (1) Chest pain (2) H/O mechanical aortic valve replacement (3) Dyspnea Assessment and Plan 1) Catheterization showing no significant coronary lesions, continue medical management 2) Mechanical [facility] [facility] AVR, heparin drip 3) Coumadin restarted 4) Can be transferred to Med-Surgical floor if needed 5) Con't tobacco cessation 6) Con't heparin drip until INR goal of 2.5 before discharge, does not want Lovenox as not previously covered by insurance and does not want to take shots in the belly 7) Can ambulate PRN, not on bedrest 8) Will see PRN, call with questions Problem Qualifiers (1) Chest pain: Qualified Code: R07.9 - Chest pain, unspecified type (2) Dyspnea: Qualified Code: R06.02 - Shortness of breath Jake Ocasio DO Nov 09, 2016 11:08
[2016-11-09] MEDS ORDERED: FURO40TA PO (14:24)
[2016-11-09] MEDS ORDERED: AMLO5 PO (14:24)
--- NOTE | 2016-11-09 14:24 | HHI.DCPOC ---
Discharge Care Plan Diagnosis: (1) Chest pain (2) H/O mechanical aortic valve replacement Your Health Problems Are: Difficulty with ADL Chest Pain Exercise Tolerance Goals to Promote Your Health * To prevent worsening of your condition and complications * To maintain your health at the optimal level Directions to Meet Your Goals Take your medications as prescribed Follow your dietary instruction Follow activity as directed Keep your appointments as scheduled Take your immunizations and boosters as scheduled If your symptoms worsen call your PCP, if no PCP go to Urgent Care Center or Emergency Room Smoking is Dangerous to Your Health. Avoid second hand smoke Call the 24-hour hour crisis hotline for domestic abuse at Kevin Rico MD Nov 09, 2016 14:24
[2016-11-09] MEDS: WARFARIN SOD 2.5 MG TAB PO SCH (16:37)
[2016-11-09] MEDS: WARFARIN SOD 10 MG TAB PO SCH (16:37)
[2016-11-10] VITALS (12 sets, daily range): BP systolic 125–149; BP diastolic 67–86; PULSE 61–84; RESP 18–20; TEMP 97.9–98.8; O2SAT 94–97
[2016-11-10] MEDS: INSULIN ASPART SUPPLEMENTAL SCALE SQ SCH ×4 (05:38→20:33)
[2016-11-10] MEDS: GLIMEPIRIDE 2 MG TAB PO SCH ×2 (05:38→16:31)
[2016-11-10 06:11] LABS: HEMATOCRIT 37.2 % (39.0-51.0); MEAN CELL VOLUME 83.1 FL (80.0-100.0); MEAN CORPUSCULAR HEMOGLOBIN 28.6 PG (27.0-34.0); MEAN CORPUSCULAR HGB CONC 34.4 % (32.0-36.0); PLATELET COUNT 208 TH/MM3 (150-450); RED BLOOD COUNT 4.47 MIL/MM3 (4.50-5.90); RED CELL DISTRIBUTION WIDTH 15.9 % (11.6-17.2); REVIEW FLAG FINAL; WHITE BLOOD COUNT 6.2 TH/MM3 (4.0-11.0)
[2016-11-10 06:21] LABS: APTT (PATIENT) 62.7 SEC (24.3-30.1); INTERNATIONAL NORMALIZED RATIO 1.9 RATIO; PROTHROMBIN TIME - PATIENT 22.1 SEC (9.8-11.6)
[2016-11-10] MEDS: amLODIPine BESYLATE 5 MG TAB PO SCH ×2 (08:16→20:30)
[2016-11-10] MEDS: metFORMIN HCL 500 MG TAB PO SCH ×2 (08:16→18:12)
[2016-11-10] MEDS: FUROSEMIDE 40 MG TAB PO SCH (08:17)
[2016-11-10] MEDS: LOSARTAN 50 MG TAB PO SCH (08:17)
[2016-11-10] MEDS: CARVEDILOL 12.5 MG TAB PO SCH ×2 (08:17→20:31)
[2016-11-10] MEDS: ATORVASTATIN 20 MG TAB PO SCH (08:17)
[2016-11-10] MEDS: SODIUM CHLORIDE 0.9% FLUSH 10 ML FLUSH IV FLUSH SCH ×2 (08:18→20:31)
[2016-11-10] MEDS: HEPARIN-D5W INJ 250 ML IV SCH ×2 (08:23→23:38)
--- NOTE | 2016-11-10 13:35 | HHI.PR ---
Subjective Remarks Patient doing well, no complaints at this time. He denies having chest pain, palpitations, shortness of breath. INR not at goal. Objective Vitals Vital Signs Date Time Temp Pulse Resp B/P Pulse Ox O2 Delivery O2 Flow Rate FiO2 11/10/16 11:18 97.9 74 18 130/72 95 11/10/16 11:18 95 Room Air 11/10/16 07:22 73 11/10/16 07:22 98.0 73 18 137/76 96 11/10/16 07:22 96 Room Air 11/10/16 06:00 69 11/10/16 04:00 84 11/10/16 04:00 98.1 84 18 149/86 96 11/10/16 04:00 Room Air 11/10/16 00:00 78 11/10/16 00:00 Room Air 11/10/16 00:00 98.4 78 18 141/71 96 11/09/16 20:00 Room Air 11/09/16 20:00 87 11/09/16 20:00 98.2 87 20 129/63 97 11/09/16 16:40 94 Room Air 11/09/16 16:40 97.8 75 18 112/54 94 11/09/16 15:00 75 I/O 11/09/16 11/09/16 11/09/16 11/10/16 11/10/16 11/10/16 07:00 15:00 23:00 07:00 15:00 23:00 Intake Total 1140 ml 1030 ml 420 ml Output Total 550 ml 800 ml Balance 1140 ml 480 ml -380 ml Intake Oral 570 ml 600 ml 240 ml IV Total 570 ml 430 ml 180 ml Output Urine Total 550 ml 800 ml # Voids 2 # Bowel Movements 1 1 0 Result Diagram: 11/10/16 0521 11/09/16 0558 Procedures Cardiac catheterization Urinary Catheter: No Vascular Central Line Catheter: No A/P Problem List: (1) Chest pain ICD Code: R07.9 Status: Acute (2) H/O mechanical aortic valve replacement ICD Code: Z95.2 Status: Chronic Assessment and Plan Atypical chest pain with False Positive Stress test on 11/03, status post Cardiac Cath showing Mild CAD, recommended to restart anticoagulation. Patient currently on warfarin and heparin until INR at goal. Patient previously taking warfarin 10 mg daily on weekdays, warfarin 12.5 mg daily during the weekend -Warfarin 12.5 mg by mouth daily -Continue Coreg -Discontinue Heparin once INR in 2.5 Hypertension Controlled. -Continue beta mihir, arb, amlodipine, Lasix History of Aortic Valve Replacement on Warfarin and heparin drip at this time. -Anticoagulation as above Hyperlipidemia -continue Lipitor 20 mg by mouth daily DM II. Hemoglobin A1C 7.1 -Continue glipizide -Continue metformin - continue sliding scale Tobacco dependence -Tobacco cessation Obesity -strongly recommended diet and exercise. DVT prophylaxis Heparin drip and Coumadin. Electrolytes: Within normal limits Hep-Lock IV fluids GI prophylaxis Pepcid Discharge Planning DC home when INR at goal, likely 12 more days Problem Qualifiers (1) Chest pain: Qualified Code: R07.9 - Chest pain, unspecified type Emi Sanders MD Nov 10, 2016 13:34
[2016-11-10] MEDS: WARFARIN SOD 2.5 MG TAB PO SCH (16:31)
[2016-11-10] MEDS: WARFARIN SOD 10 MG TAB PO SCH (16:31)
[2016-11-11] VITALS (10 sets, daily range): BP systolic 114–146; BP diastolic 60–82; PULSE 53–79; RESP 16–20; TEMP 97.6–98.3; O2SAT 94–97
[2016-11-11 05:39] LABS: APTT (PATIENT) 83.6 SEC (24.3-30.1); INTERNATIONAL NORMALIZED RATIO 2.1 RATIO
[2016-11-11 05:53] LABS: AUTOMATED NEUTROPHIL # 4.1 TH/MM3 (1.8-7.7); BASOPHIL # 0.1 TH/MM3 (0-0.2); BASOPHIL % 0.8 % (0.0-2.0); EOSINOPHIL # 0.3 TH/MM3 (0-0.4); EOSINOPHIL % 4.2 % (0.0-4.0); HEMATOCRIT 36.8 % (39.0-51.0); HEMO FLAGS DIFF FINAL; LYMPHOCYTE # 1.6 TH/MM3 (1.0-4.8); MEAN CELL VOLUME 83.7 FL (80.0-100.0); MEAN CORPUSCULAR HEMOGLOBIN 28.1 PG (27.0-34.0); MEAN CORPUSCULAR HGB CONC 33.5 % (32.0-36.0); MONO % 10.6 % (0.0-8.0); NEUT % 60.4 % (16.0-70.0); PLATELET COUNT 210 TH/MM3 (150-450); RED CELL DISTRIBUTION WIDTH 15.9 % (11.6-17.2); WHITE BLOOD COUNT 6.8 TH/MM3 (4.0-11.0)
[2016-11-11] MEDS: INSULIN ASPART SUPPLEMENTAL SCALE SQ SCH ×4 (06:24→20:47)
[2016-11-11] MEDS: GLIMEPIRIDE 2 MG TAB PO SCH ×2 (07:00→15:51)
[2016-11-11] MEDS: CARVEDILOL 12.5 MG TAB PO SCH ×2 (08:13→20:46)
[2016-11-11] MEDS: ATORVASTATIN 20 MG TAB PO SCH (08:14)
[2016-11-11] MEDS: LOSARTAN 50 MG TAB PO SCH (08:14)
[2016-11-11] MEDS: SODIUM CHLORIDE 0.9% FLUSH 10 ML FLUSH IV FLUSH SCH ×2 (08:14→20:47)
[2016-11-11] MEDS: metFORMIN HCL 500 MG TAB PO SCH ×2 (08:14→17:18)
[2016-11-11] MEDS: amLODIPine BESYLATE 5 MG TAB PO SCH ×2 (08:14→20:46)
[2016-11-11] MEDS: FUROSEMIDE 40 MG TAB PO SCH (08:14)
[2016-11-11 12:43] LABS: APTT (PATIENT) 61.7 SEC (24.3-30.1)
--- NOTE | 2016-11-11 13:22 | HHI.PR ---
Subjective Remarks No acute events overnight. Afebrile, vital signs stable. Patient states he wishes to go home and is frustrated that his INR is only 2.1. He has no complaints at this time. Requests a shower and to DC telemetry. Objective Vitals Vital Signs Date Time Temp Pulse Resp B/P Pulse Ox O2 Delivery O2 Flow Rate FiO2 11/11/16 12:00 97.9 72 16 114/60 94 11/11/16 08:00 97.7 62 16 128/73 97 11/11/16 05:25 98.1 72 20 146/77 96 11/11/16 04:00 Room Air 11/11/16 04:00 98.3 75 20 130/82 96 11/11/16 04:00 79 11/11/16 03:00 64 11/11/16 02:00 68 11/11/16 01:00 66 11/11/16 00:00 66 11/10/16 23:33 98.6 68 20 125/68 95 11/10/16 23:00 Room Air 11/10/16 23:00 77 11/10/16 22:00 72 11/10/16 21:00 78 11/10/16 20:00 Room Air 11/10/16 20:00 80 11/10/16 20:00 98.8 78 20 139/75 94 11/10/16 19:00 61 11/10/16 15:29 98.0 74 18 127/67 97 11/10/16 15:29 97 Room Air 11/10/16 15:29 76 I/O 11/10/16 11/10/16 11/10/16 11/11/16 11/11/16 11/11/16 07:00 15:00 23:00 07:00 15:00 23:00 Intake Total 420 ml 960 ml 780 ml Output Total 800 ml 850 ml Balance -380 ml 110 ml 780 ml Intake Oral 240 ml 960 ml 600 ml IV Total 180 ml 180 ml Output Urine Total 800 ml 850 ml # Voids 2 # Bowel Movements 0 2 1 Result Diagram: 11/11/16 0435 11/09/16 0558 Objective Remarks Gen.: No acute distress Head: Normocephalic. Atraumatic. EENT: Pupils equal round and reactive to light. Nose without drainage. Airway intact. Throat without injection. Cardiovascular: Regular rate and rhythm. 2/6 murmur. Respiratory: Lungs clear to auscultation bilaterally. No wheezes or rhonchi. Abdomen: Soft, nontender, nondistended. No peritoneal signs. Musculoskeletal: No gross deformities. No edema. Skin: No obvious rashes or erythema. Neuro: Sensory and motor grossly intact. Cranial nerves II through XII grossly intact. Psych: Appropriate mood and affect Procedures Cardiac catheterization A/P Problem List: (1) Chest pain ICD Code: R07.9 Status: Acute (2) H/O mechanical aortic valve replacement ICD Code: Z95.2 Status: Chronic Assessment and Plan Atypical chest pain with False Positive Stress test on 11/03, status post Cardiac Cath showing Mild CAD, recommended to restart anticoagulation. Patient currently on warfarin and heparin until INR at goal. Patient previously taking warfarin 10 mg daily on weekdays, warfarin 12.5 mg daily during the weekend -Per pharmacy, increase warfarin to 14 mg daily -Continue Coreg -Discontinue Heparin once INR in 2.5 Hypertension Controlled. -Continue beta mihir, arb, amlodipine, Lasix History of Aortic Valve Replacement on Warfarin and heparin drip at this time. -Anticoagulation as above Hyperlipidemia -continue Lipitor 20 mg by mouth daily DM II. Hemoglobin A1C 7.1 -Continue glipizide -Continue metformin - continue sliding scale Tobacco dependence -Tobacco cessation Obesity -strongly recommended diet and exercise. DVT prophylaxis Heparin drip and Coumadin. Electrolytes: Within normal limits Hep-Lock IV fluids GI prophylaxis Pepcid Discharge Planning DC home when INR at goal, likely 12 more days Problem Qualifiers (1) Chest pain: Qualified Code: R07.9 - Chest pain, unspecified type Birgit Leigh MD R3 Nov 11, 2016 13:21
[2016-11-11] MEDS: HEPARIN-D5W INJ 250 ML IV SCH (15:50)
[2016-11-11] MEDS ORDERED: WARFARIN SOD 10 MG TAB PO ONE (16:00)
[2016-11-11] MEDS ORDERED: WARFARIN SOD 4 MG TAB PO ONE (16:00)
[2016-11-11 20:34] LABS: APTT (PATIENT) 57.2 SEC (24.3-30.1)
[2016-11-12] VITALS: BP 114/55; PULSE 72; RESP 18; TEMP 97.7; O2SAT 92
[2016-11-12 04:00] VITALS: BP 135/79; PULSE 74; RESP 20; TEMP 98; O2SAT 93
[2016-11-12] MEDS: GLIMEPIRIDE 2 MG TAB PO SCH ×2 (05:50→16:21)
[2016-11-12] MEDS: INSULIN ASPART SUPPLEMENTAL SCALE SQ SCH ×4 (05:51→21:00)
[2016-11-12 07:28] LABS: APTT (PATIENT) 75.6 SEC (24.3-30.1); INTERNATIONAL NORMALIZED RATIO 2.4 RATIO; PROTHROMBIN TIME - PATIENT 27.7 SEC (9.8-11.6)
[2016-11-12] MEDS: LOSARTAN 50 MG TAB PO SCH (08:23)
[2016-11-12] MEDS: amLODIPine BESYLATE 5 MG TAB PO SCH ×2 (08:23→21:36)
[2016-11-12] MEDS: metFORMIN HCL 500 MG TAB PO SCH ×2 (08:23→16:22)
[2016-11-12] MEDS: CARVEDILOL 12.5 MG TAB PO SCH ×2 (08:23→21:36)
[2016-11-12] MEDS: ATORVASTATIN 20 MG TAB PO SCH (08:23)
[2016-11-12] MEDS: FUROSEMIDE 40 MG TAB PO SCH (08:23)
[2016-11-12] MEDS: HEPARIN-D5W INJ 250 ML IV SCH (08:31)
[2016-11-12 08:33] VITALS: BP 142/70; PULSE 72; RESP 18; TEMP 97.8; O2SAT 94
[2016-11-12 12:00] VITALS: BP 122/69; PULSE 67; RESP 18; TEMP 98; O2SAT 99
--- NOTE | 2016-11-12 15:45 | HHI.PR ---
Subjective Remarks Patient has no complaints. He is very anxious to go home. Denying chest pain, shortness of breathing, palpitation, lightheadedness dizziness. events overnight. Objective Vitals Vital Signs Date Time Temp Pulse Resp B/P Pulse Ox O2 Delivery O2 Flow Rate FiO2 11/12/16 12:00 98.0 67 18 122/69 99 11/12/16 08:33 97.8 72 18 142/70 94 11/12/16 08:00 96 Room Air 21 11/12/16 04:00 98.0 74 20 135/79 93 11/12/16 00:00 97.7 72 18 114/55 92 11/11/16 20:20 Room Air 11/11/16 20:00 98.2 77 18 122/60 94 11/11/16 16:00 97.6 53 16 135/78 94 I/O 11/11/16 11/11/16 11/11/16 11/12/16 11/12/16 11/12/16 07:00 15:00 23:00 07:00 15:00 23:00 Intake Total 780 ml 1221 ml 96 ml 254 ml Output Total 800 ml Balance 780 ml 1221 ml -704 ml 254 ml Intake Oral 600 ml 1080 ml 0 ml 120 ml IV Total 180 ml 141 ml 96 ml 134 ml Output Urine Total 800 ml # Voids 2 3 2 # Bowel Movements 1 1 0 1 Result Diagram: 11/11/16 0435 11/09/16 0558 Objective Remarks GENERAL: in NAD CARDIOVASCULAR: Regular rate and rhythm. + 3/6 murmur RESPIRATORY: Breath sounds equal bilaterally. No accessory muscle use. GASTROINTESTINAL: Abdomen soft, non-tender, nondistended. MUSCULOSKELETAL: No cyanosis, or edema. BACK: Nontender without obvious deformity. No CVA tenderness. Procedures Cardiac catheterization Medications and IVs Current Medications Aspirin (Aspirin Chew) 162 mg ONCE ONCE PO Last administered on 11/02/16 17: 15; Start 11/02/16 at 17:15; Stop 11/02/16 at 17:16; Status DC Nitroglycerin (Nitroglycerin 2% Oint) 0.5 inch ONCE ONCE TOP Last administered on 11/02/16 17:15; Start 11/02/16 at 17:15; Stop 11/02/16 at 17:16 ; Status DC Sodium Chloride (NS Flush) 2 ml UNSCH PRN IVF FLUSH AFTER USING IV ACCESS; Start 11/02/16 at 17:15; Stop 11/02/16 at 18:55; Status DC Sodium Chloride (NS Flush) 2 ml UNSCH PRN IV FLUSH FLUSH AFTER USING IV ACCESS ; Start 11/02/16 at 19:00; Stop 11/06/16 at 10:20; Status DC Sodium Chloride (NS Flush) 2 ml BID IV FLUSH Last administered on 11/06/16 10: 00; Start 11/02/16 at 21:00; Stop 11/06/16 at 10:20; Status DC Acetaminophen (Tylenol) 500 mg Q4H PRN PO HEADACHE; Start 11/02/16 at 19:00 Acetaminophen/ Hydrocodone Bitart ([place] 7.5-325 Mg) 1 tab Q4H PRN PO PAIN SCALE 1 TO 7; Start 11/02/16 at 19:00 Morphine Sulfate (Morphine Inj) 2 mg Q4H PRN IV PAIN SCALE 8 TO 10; Start 11/02 at 19:00 Ondansetron HCl (Zofran Inj) 4 mg Q6H PRN IV NAUSEA; Start 11/02/16 at 19:00 Nitroglycerin (Nitrostat Sl) 0.4 mg Q5M PRN SL CHEST PAIN; Start 11/02/16 at 19 :00 Aspirin (Aspirin) 325 mg DAILY PO Last administered on 11/04/16 07:55; Start at 09:00; Stop 11/04/16 at 12:22; Status DC Warfarin Sodium (Coumadin) 10 mg ONCE ONCE PO Last administered on 11/02/16 19:07; Start 11/02/16 at 19:00; Stop 11/02/16 at 19:01; Status DC Carvedilol (Coreg) 25 mg BID PO Last administered on 11/12/16 08:23; Start 11/03/16 at 09:30 Diltiazem HCl (Cardizem Cd) 300 mg DAILY PO Last administered on 11/03/16 11:52 ; Start 11/03/16 at 09:30; Stop 11/03/16 at 14:37; Status DC Losartan Potassium (Cozaar) 100 mg DAILY PO Last administered on 11/12/16 08: 23; Start 11/03/16 at 09:30 Atorvastatin Calcium (Lipitor) 20 mg DAILY PO Last administered on 11/12/16 08 :23; Start 11/03/16 at 09:30 Insulin Aspart (NovoLOG SUPPLEMENTAL SCALE) 1 ACHS SLIDING SCALE SQ Last administered on 11/07/16 21:22; Start 11/03/16 at 11:00; Stop 11/08/16 at 07:53; Status DC Dextrose (D50w (Vial) Inj) 25 ml UNSCH PRN IV HYPOGLYCEMIA-SEE COMMENTS; Start 11/03/16 at 09:30 Glucagon (Glucagon Inj) 1 mg UNSCH PRN IM/SQ HYPOGLYCEMIA-SEE COMMENTS; Start 11/03/16 at 09:30 Regadenoson (Lexiscan Inj) 0.4 mg STK-MED ONCE .ROUTE Last administered on 10:22; Start 11/03/16 at 10:22; Stop 11/03/16 at 10:23; Status DC Amlodipine Besylate (Norvasc) 5 mg BID PO Last administered on 11/12/16 08:23 ; Start 11/03/16 at 21:00 Furosemide (Lasix) 40 mg DAILY PO Last administered on 11/12/16 08:23; Start 11/03/16 at 14:45 Temazepam 30 mg 30 mg HS PRN PO SLEEP Last administered on 11/05/16 20:27; Start 11/03/16 at 15:00 Magnesium Sulfate/ Dextrose (Magnesium Sulfate 1 Gm Premix) 100 ml @ 100 mls/ hr Q1H IV Last administered on 11/04/16 09:27; Start 11/04/16 at 08:30; Stop 11/04/16 at 10:29; Status DC Aspirin (Aspirin Chew) 81 mg DAILY CHEW Last administered on 11/07/16 08:45; Start 11/05/16 at 09:00; Stop 11/08/16 at 07:53; Status DC Heparin Sodium (Porcine) (Heparin Inj) 5,000 units UNSCH PRN IV APTT LESS THAN 25; Start 11/04/16 at 18:15 Heparin Sodium (Porcine) 2500 units 2,500 units UNSCH PRN IV APTT 25 TO 39 Last administered on 11/06/16 21:03; Start 11/04/16 at 18:15 Heparin Sodium/ Dextrose (Heparin-D5W Inj) 250 ml @ 0 mls/hr TITRATE IV Last administered on 11/12/16 08:31; Start 11/04/16 at 12:15 Potassium Chloride (KCl) 20 meq ONCE ONCE PO Last administered on 11/04/16 15: 06; Start 11/04/16 at 13:45; Stop 11/04/16 at 13:46; Status DC Famotidine 20 mg 20 mg Q12H IV PUSH Last administered on 11/07/16 21:19; Start 11/05/16 at 11:00; Stop 11/08/16 at 07:53; Status DC Heparin Sodium/ Sodium Chloride (Heparin-NS/Pf Inj) 500 ml @ As Directed STK- MED ONCE .ROUTE Last administered on 11/06/16 08:08; Start 11/06/16 at 08:08; Stop 11/06/16 at 08:09; Status DC Midazolam HCl (Versed Inj) 2 mg STK-MED ONCE .ROUTE Last administered on 08:44; Start 11/06/16 at 08:16; Stop 11/06/16 at 08:17; Status DC Fentanyl Citrate (fentaNYL INJ) 100 mcg STK-MED ONCE .ROUTE Last administered on 11/06/16 08:46; Start 11/06/16 at 08:16; Stop 11/06/16 at 08:17; Status DC Verapamil HCl 5 mg 5 mg STK-MED ONCE .ROUTE Last administered on 11/06/16 08:16 ; Start 11/06/16 at 08:16; Stop 11/06/16 at 08:17; Status DC Nitroglycerin (Nitroglycerin Inj) 5 ml @ As Directed STK-MED ONCE .ROUTE Last administered on 11/06/16 08:16; Start 11/06/16 at 08:16; Stop 11/06/16 at 08:17; Status DC Heparin Sodium (Porcine) (Heparin Inj) 10,000 units STK-MED ONCE .ROUTE Last administered on 11/06/16 08:17; Start 11/06/16 at 08:17; Stop 11/06/16 at 08:18; Status DC Sodium Chloride (NS Flush) 2 ml BID IV FLUSH Last administered on 11/10/16 20: 31; Start 11/06/16 at 21:00 Sodium Chloride (NS Flush) 2 ml UNSCH PRN IV FLUSH FLUSH AFTER USING IV ACCESS ; Start 11/06/16 at 09:30 Warfarin Sodium 10 mg 10 mg DAILY@16 PO Last administered on 11/10/16 16:31; Start 11/06/16 at 16:00 Pharmacy Profile Note (Coumadin Consult Pharmacy) 0 ml @ 0 mls/hr UNSCH OTHER ; Start 11/06/16 at 09:45 Warfarin Sodium (Coumadin) 2.5 mg DAILY@16 PO Last administered on 11/10/16 16: 31; Start 11/06/16 at 16:00 Patient Medication Teaching (Coumadin Booklet) 1 ONCE ONCE OTHER Last administered on 11/06/16 16:09; Start 11/06/16 at 16:00; Stop 11/06/16 at 16:01; Status DC Iohexol (OMNIPAQUE 350 INJ (Cranberry Grower)) 100 ml STK-MED ONCE OTHER ; Start at 12:16; Stop 11/06/16 at 12:17; Status DC Warfarin Sodium (Coumadin) 2.5 mg ONCE PO Last administered on 11/07/16 15:45; Start 11/07/16 at 16:00; Stop 11/07/16 at 21:00; Status DC Insulin Aspart (NovoLOG SUPPLEMENTAL SCALE) 1 ACHS SLIDING SCALE SQ Last administered on 11/12/16 05:51; Start 11/08/16 at 11:00 Glimepiride (Amaryl) 2 mg BIDAC PO Last administered on 11/12/16 05:50; Start 11/08/16 at 08:00 Metformin HCl (Glucophage) 1,000 mg BIDPC PO Last administered on 11/12/16 08: 23; Start 11/09/16 at 09:00 Warfarin Sodium (Coumadin) 10 mg ONCE@1600 ONCE PO Last administered on 15:51; Start 11/11/16 at 16:00; Stop 11/11/16 at 16:01; Status DC Warfarin Sodium (Coumadin) 4 mg ONCE@1600 ONCE PO Last administered on 15:51; Start 11/11/16 at 16:00; Stop 11/11/16 at 16:01; Status DC A/P Problem List: (1) Chest pain ICD Code: R07.9 Status: Acute (2) H/O mechanical aortic valve replacement ICD Code: Z95.2 Status: Chronic Assessment and Plan Atypical chest pain with False Positive Stress test on 11/03, status post Cardiac Cath showing Mild CAD, recommended to restart anticoagulation. Patient currently on warfarin and heparin until INR at goal. Patient previously taking warfarin 10 mg daily on weekdays, warfarin 12.5 mg daily during the weekend -Per pharmacy, increase warfarin to 14 mg daily -Continue Coreg -Discontinue Heparin once INR in 2.5 Hypertension Controlled. -Continue beta mihir, arb, amlodipine, Lasix History of Aortic Valve Replacement on Warfarin and heparin drip at this time. -Anticoagulation as above Hyperlipidemia -continue Lipitor 20 mg by mouth daily DM II. Hemoglobin A1C 7.1 -Continue glipizide and metformin - continue sliding scale Tobacco dependence -Tobacco cessation Obesity -strongly recommended diet and exercise. -also f/u with PCP. DVT prophylaxis Heparin drip and Coumadin. Discharge Planning Once INR is therapeutic patient can be discharged to home. Anticipating discharge tomorrow. Problem Qualifiers (1) Chest pain: Qualified Code: R07.9 - Chest pain, unspecified type Brenda Ritter MD Nov 12, 2016 15:45
[2016-11-12 16:00] VITALS: BP 125/71; PULSE 74; RESP 18; TEMP 98.4; O2SAT 93
[2016-11-12] MEDS: WARFARIN SOD 10 MG TAB PO SCH (16:22)
[2016-11-12] MEDS: WARFARIN SOD 2.5 MG TAB PO SCH (16:22)
[2016-11-12 20:00] VITALS: BP 117/58; PULSE 77; RESP 18; TEMP 98.1; O2SAT 93
[2016-11-12] MEDS: SODIUM CHLORIDE 0.9% FLUSH 10 ML FLUSH IV FLUSH SCH (21:00)
[2016-11-13] VITALS: BP 131/61; PULSE 74; RESP 16; TEMP 98.2; O2SAT 92
[2016-11-13] MEDS: HEPARIN-D5W INJ 250 ML IV SCH (00:13)
[2016-11-13 04:00] VITALS: BP 113/58; PULSE 72; RESP 16; TEMP 97.9; O2SAT 92
[2016-11-13] MEDS: INSULIN ASPART SUPPLEMENTAL SCALE SQ SCH (06:07)
[2016-11-13 08:00] VITALS: BP 122/69; PULSE 65; RESP 18; TEMP 97.5; O2SAT 97
[2016-11-13] MEDS: ATORVASTATIN 20 MG TAB PO SCH (08:40)
[2016-11-13] MEDS: CARVEDILOL 12.5 MG TAB PO SCH (08:40)
[2016-11-13] MEDS: metFORMIN HCL 500 MG TAB PO SCH (08:40)
[2016-11-13] MEDS: LOSARTAN 50 MG TAB PO SCH (08:40)
[2016-11-13] MEDS: FUROSEMIDE 40 MG TAB PO SCH (08:40)
[2016-11-13] MEDS: amLODIPine BESYLATE 5 MG TAB PO SCH (08:40)
[2016-11-13 08:43] LABS: HEMATOCRIT 39.9 % (39.0-51.0); MEAN CELL VOLUME 84.2 FL (80.0-100.0); MEAN CORPUSCULAR HEMOGLOBIN 27.3 PG (27.0-34.0); MEAN CORPUSCULAR HGB CONC 32.5 % (32.0-36.0); PLATELET COUNT 214 TH/MM3 (150-450); RED BLOOD COUNT 4.74 MIL/MM3 (4.50-5.90); RED CELL DISTRIBUTION WIDTH 15.8 % (11.6-17.2); REVIEW FLAG FINAL; WHITE BLOOD COUNT 7.4 TH/MM3 (4.0-11.0)
[2016-11-13 08:46] LABS: INTERNATIONAL NORMALIZED RATIO 2.5 RATIO; PROTHROMBIN TIME - PATIENT 29.3 SEC (9.8-11.6)
--- NOTE | 2016-11-13 11:34 | HHI.DS ---
Discharge Summary Admission Date Nov 05, 2016 at 11:38 Discharge Date: Nov 13, 2016 Admitting Diagnosis Chest pain (1) Chest pain ICD Code: R07.9 Diagnosis: Principal (2) H/O mechanical aortic valve replacement ICD Code: Z95.2 Diagnosis: Secondary Procedures Cardiac catheterization Brief History - From Admission This is a 66-year-old male with history of aortic valve replacement in 2000 that presents complaining of chest pain and shortness of breath. States he really wasn't concerned with the chest discomfort. He states that the little thumb print jabbing at different spots of his chest. He is concerned about the shortness of breath. He states it never been short of breath. He is beginning to wonder has anything to do with taking Chantix. He began taking Chantix 5 days ago and the shortness of breath began 3 days ago. see HPI for further information. CBC/BMP: 11/13/16 0712 11/09/16 0558 Significant Findings Laboratory Tests Test 11/11/16 11/11/16 11/11/16 11/12/16 04:35 12:12 19:50 06:30 Red Blood Count 4.40 MIL/MM3 (4.50-5.90) Hemoglobin 12.3 GM/DL (13.0-17.0) Hematocrit 36.8 % (39.0-51.0) Monocytes (%) (Auto) 10.6 % (0.0-8.0) Eosinophils (%) (Auto) 4.2 % (0.0-4.0) Prothrombin Time 24.0 SEC 27.7 SEC (9.8-11.6) (9.8-11.6) Activated Partial 83.6 SEC 61.7 SEC 57.2 SEC 75.6 SEC Thromboplast Time (24.3-30.1) (24.3-30.1) (24.3-30.1) (24.3-30.1) Test 11/13/16 07:12 Prothrombin Time 29.3 SEC (9.8-11.6) Imaging Last Impressions Myocardial Perfusion Scan Nuc Med 11/03/16 0000 Signed Impressions: Service Date/Time: Thursday, November 03, 2016 10:15 - CONCLUSION: Stress- induced ischemia as described above RISK CATEGORY: Intermediate (1-3%% Annual Mortality Rate) Armani Fiore MD FACR Chest X-Ray 11/02/16 1711 Signed Impressions: Service Date/Time: Wednesday, November 02, 2016 17:16 - CONCLUSION: Compensated cardiomegaly, previous aortic valve otherwise negative. Armani Fiore MD FACR PE at Discharge GENERAL: in NAD CARDIOVASCULAR: Regular rate and rhythm. + 3/6 murmur RESPIRATORY: Breath sounds equal bilaterally. No accessory muscle use. GASTROINTESTINAL: Abdomen soft, non-tender, nondistended. MUSCULOSKELETAL: No cyanosis, or edema. BACK: Nontender without obvious deformity. No CVA tenderness. Pt update on day of discharge f/u for anticoagulation patient has no complaints. Denied any CP, SOB, palpitations, lightheadedness/dizziness. Hospital Course Atypical chest pain -patient had a nuclear stress test that was positive. -warfarin held and put on heparin due to procedure. -he then had a cardiac Cath showing Mild CAD, -Coumadin restarted and on heparin until therapeutic. Hypertension Controlled. -Continue beta mihir, arb, amlodipine, Lasix History of Aortic Valve Replacement on Warfarin and heparin drip at this time. -Anticoagulation as above Hyperlipidemia -continue Lipitor 20 mg by mouth daily DM II. Hemoglobin A1C 7.1 -Continue glipizide and metformin - continue sliding scale Tobacco dependence -Tobacco cessation Obesity -strongly recommended diet and exercise. -also f/u with PCP. Pt Condition on Discharge: Good Discharge Disposition: Discharge Home Discharge Time: <= 30 minutes Discharge Instructions DIET: Follow Instructions for: Heart Healthy Diet, Diabetic Diet, Coumadin ( Warfarin) Diet Activities you can perform: Regular-No Restrictions Follow up Referrals: Cardiology - 1 Week PCP Follow-up - 2-3 Days New Medications: Amlodipine (Norvasc) 5 Mg Tab 5 MG PO BID Blood Pressure Management #60 TAB Furosemide (Furosemide) 40 Mg Tab 40 MG PO DAILY Blood Pressure Management #30 TAB Continued Medications: Carvedilol (Carvedilol) 25 Mg Tab 25 MG PO BID #60 Ref 0 TAB Glimepiride (Glimepiride) 2 Mg Tab 2 MG PO BIDAC Blood Sugar Management #60 Ref 0 TAB Losartan (Losartan) 100 Mg Tab 100 MG PO DAILY Blood Pressure Management #30 Ref 0 TAB Metformin (Metformin) 1,000 Mg Tab 1000 MG PO BIDPC With meals Blood Sugar Management #60 Ref 0 TAB Rosuvastatin (Crestor) 10 Mg Tab 10 MG PO DAILY Cholesterol Management #30 Ref 0 TAB Warfarin (Coumadin) 10 Mg Tab 10 MG PO MOTUWETHFR Take 1 tablet (10mg) on Saturday,Saturday,Saturday, and Saturday at 4pm Prevent Blood Clot #30 Ref 0 TAB Warfarin (Coumadin) 10 Mg Tab 12.5 MG PO SASU Take 1 tablet (10mg) with 2.5mg tab for a total dose of 12.5mg on Saturday and Saturday at 1600 Prevent Blood Clot #30 Ref 0 TAB Warfarin (Coumadin) 2.5 Mg Tab 12.5 MG PO SASU Take 1 tablet (2.5mg) with 10mg tablet for a total dose of 12.5mg on Saturday and Saturday at 1600 Prevent Blood Clot #30 Ref 0 TAB Discontinued Medications: Diltiazem CD 24 HR (Diltiazem CD 24 HR) 300 Mg Caper 300 MG PO DAILY #30 Ref 0 Brenda Miller MD Nov 13, 2016 11:34
[2016-11-13 12:00] VITALS: BP 118/62; PULSE 62; RESP 18; TEMP 98.2; O2SAT 92
== END 2016-11-13 15:00 | disposition home or self-care (01) | DRG 287 ==
LOC: NEPE 16:32 → NEDA 21:37 → NEPFCDU 22:59 → HCIN 11-04 18:46 → OBSVTOIN 11-05 11:38 → HCIS 11-06 12:51 → N04A 11-11 05:25
PROVIDERS: ADMIT Family Medicine; ATTEND Family Medicine
PROC: B2111ZZ Fluoroscopy of Multiple Coronary Arteries using Low Osmolar Contrast (ICD-10-PCS; principal; 2016-11-06 08:30)
DX: R07.89 Other chest pain (principal); E87.8 Other disorders of electrolyte and fluid balance, not elsewhere classified; E66.01 Morbid (severe) obesity due to excess calories; R94.39 Abnormal result of other cardiovascular function study; Z68.34 Body mass index [BMI] 34.0-34.9, adult; I10 Essential (primary) hypertension; I25.10 Atherosclerotic heart disease of native coronary artery without angina pectoris; Z95.2 Presence of prosthetic heart valve; Z79.01 Long term (current) use of anticoagulants; E11.9 Type 2 diabetes mellitus without complications; Z79.84 Long term (current) use of oral hypoglycemic drugs; E78.5 Hyperlipidemia, unspecified; F17.210 Nicotine dependence, cigarettes, uncomplicated; I71.9 Aortic aneurysm of unspecified site, without rupture
CPT/HCPCS: 71010; 78452; 80048; 80053; 82550; 82552; 82948; 83036; 83735; 83880; 84484; 85025; 85027; 85610; 85730; 93005; 93017; 93306; 93454; A9502; C1769; C1893; G0378; J1644; J1815; J2250; J2785; J3010; J3475; Q9967